=== PATIENT | female | born 1955 | race Caucasian/White ===

== ENCOUNTER 2019-08-22 22:34 | Emergency (ER) | payer BC, SELFPAY ==
[2019-08-22 22:37] VITALS: BP 166/90; PULSE 87; RESP 19; TEMP 36.2; O2SAT 98
[2019-08-22 23:29] VITALS: BP 148/75; PULSE 80; RESP 18; O2SAT 97
--- NOTE | 2019-08-23 00:03 | ED.GENADULT ---
HPI - General Adult General Chief complaint: Extremity Injury, Lower Stated complaint: r leg pain Time Seen by Provider: 08/22/19 23:06 Source: patient and family Mode of arrival: ambulatory Limitations: no limitations History of Present Illness HPI narrative: Patient is a 64-year-old female who presents for evaluation of bruised area to the right inner thigh patient denies injury or trauma or similar occurrence in the past patient on arrival is in no distress patient notes some stinging intermittent pain worse with activity and movement patient notes that the pain does not radiate denies any other complaints presents per private vehicle in no distress Related Data Allergies Allergy/AdvReac Type Severity Reaction Status Date / Time nabumetone Allergy Unknown Unknown Verified 08/22/19 23:37 pregabalin Allergy Unknown Unconscious Verified 08/22/19 23:37 Review of Systems Review of Systems: All systems reviewed & are unremarkable except as noted in HPI and below PMFSH Past Medical History Medical History (Updated 08/23/19 @ 00:08 by Jam Brown PA-C) Fibromyalgia Social History Social History Smoking status: Never smoker Alcohol intake: never Gender identity (if verbalized by the patient): Female Exam Narrative: Exam Narrative: GENERAL: Well-appearing, well-nourished, and in no acute distress. HEAD: Normocephalic, atraumatic. EYES: PERRLA and EOMI. ENT: Nares clear, no rhinorrhea or epistaxis. Mucous membranes moist. CHEST: Clear to auscultation. No respiratory distress. No wheezes rales or rhonchi HEART: Regular rate and rhythm. No murmur heard. Normal peripheral pulses. EXTREMITIES: Normal range of motion. No edema. SKIN: Warm, dry, no rash. Patient with bruised area with extravasation in the right inner thigh remainder of extremity is nontender without any deformity NEURO: No focal deficits. Alert and oriented x3. Neurovascularly intact. Capillary refill less than 2 seconds PSYCH: Normal mood and affect. Course Course Emergency Course: Patient in the room in no distress with findings consistent with likely muscle tear or superficial bleeding and bruising no other findings can concerning at this time advised to follow with primary care and given reasons to return Vital Signs Vital signs: Vital Signs Temperature 97.2 F L 08/22/19 22:37 Pulse Rate 87 08/22/19 22:37 Respiratory Rate 19 08/22/19 22:37 Blood Pressure 166/90 H 08/22/19 22:37 Pulse Oximetry 98 08/22/19 22:37 Temperature 97.2 F L 08/22/19 22:37 Pulse Rate 80 08/22/19 23:29 Respiratory Rate 18 08/22/19 23:29 Blood Pressure 148/75 H 08/22/19 23:29 Pulse Oximetry 97 08/22/19 23:29 Medical Decision Making MDM Narrative Medical decision making narrative: Patients injury or pain is consistent with musculoskeletal etiology. No signs of neurological or vascular compromise on exam. Compartments and tisues are soft without signs of compartment syndrome. Pain is felt appropriate for further evaluation on an outpatient basis. Vital Signs Vital Signs: Vital Signs Temperature 97.2 F L 08/22/19 22:37 Pulse Rate 87 08/22/19 22:37 Respiratory Rate 19 08/22/19 22:37 Blood Pressure 166/90 H 08/22/19 22:37 Pulse Oximetry 98 08/22/19 22:37 Temperature 97.2 F L 08/22/19 22:37 Pulse Rate 80 08/22/19 23:29 Respiratory Rate 18 08/22/19 23:29 Blood Pressure 148/75 H 08/22/19 23:29 Pulse Oximetry 97 08/22/19 23:29 Discharge Plan Discharge Clinical Impression: Acute pain of right thigh Patient Disposition: Home, Self-Care Condition: Stable Instructions: Antibiotic Form, Leg Pain (ED) Additional Instructions: Limited weight on the affected leg until able to bear weight without pain. Ice and elevate extremity. Pain medication as needed and directed. Follow up with your doctor for further care in the next 2 days to set up
[2019-08-23 00:55] VITALS: BP 138/80; PULSE 7; RESP 16; O2SAT 97
== END 2019-08-23 00:58 | disposition home or self-care (01) ==
PROVIDERS: Emergency Provider Emergency Medicine
DX: M79.651 Pain in right thigh (principal); M79.7 Fibromyalgia
CPT/HCPCS: 99282

== ENCOUNTER 2022-11-21 17:26 | Emergency (ER) | payer OTHER, SELFPAY ==
[2022-11-21] VITALS (8 sets, daily range): BP systolic 116–140; BP diastolic 63–75; PULSE 80–102; RESP 11–18; TEMP 36.5; O2SAT 99
--- NOTE | ~2022-11-21 | CT_ITS ---
EXAMINATION: CT abdomen pelvis w con DATE: 11/21/2022 20:25 INDICATION: Diverticulitis with gastrointestinal bleed TECHNIQUE: Computed tomography (CT) of the abdomen and pelvis was performed with 100 mL Omnipaque-350 intravenous contrast. Automated exposure control and iterative reconstruction technique were employe d. The dose-length product was 1036.65 mGy-cm. COMPARISON: 09/30/2018 FINDINGS: Mild paravertebral atelectasis/scarring at the azygos esophageal recess of the right lower lobe relat ed to prominent endplate osteophytes at the lower thoracic spine consistent with diffuse idiopathic s keletal hyperostosis (DISH). Heart size is normal. No pericardial or pleural effusion. Small sliding- type hiatal hernia with postoperative change of prior Minerva-en-Y gastric bypass procedure. Chronic mil d intrahepatic biliary ductal dilation is within normal limits post cholecystectomy with surgical cli ps at the gallbladder fossa. There are a few additional surgical clips along the anterior margin of t he spleen. Pancreas, spleen and bilateral adrenal glands are normal. 1.5 cm right renal cyst. Small r egion of cortical scarring at both kidneys likely sequela of prior infarction or infection. Consider change of prior cecal resection with right lower quadrant ileocolic anastomosis. No bowel obstruction . There are few scattered colonic diverticula primarily along the sigmoid colon without adjacent infl ammatory change to suggest diverticulitis. Bladder is normal. The uterus is not identified and has quin sanches been surgically resected. Unchanged infraumbilical ventral diastases underlying a midline surgic al scar. No free intraperitoneal gas or fluid. No pathologically enlarged abdominal or pelvic lymphad enopathy. Moderate lumbar and lower thoracic spondylosis. IMPRESSION: 1. Mild diverticulosis without evident diverticulitis or other acute intra-abdominal/pelvic process. 2. Small sliding-type hiatal hernia with postoperative change of prior gastric bypass procedure. 3. Additional postoperative change of prior cholecystectomy, hysterectomy and cecal resection. Reviewed, dictated and finalized at location A. IMPRESSION: 1. Mild diverticulosis without evident diverticulitis or other acute intra-abdo lisa/pelvic process. 2. Small sliding-type hiatal hernia with postoperative change of prior gastric bypass procedure. 3. Additional postoperative change of prior cholecystectomy, hysterectomy and c ecal resection.
[2022-11-21 17:48] LABS: Basophils Absolute Auto 0.1 K/mm3 (0.0-0.1); Basophils Percent Auto 0.7 % (0.2-1.2); Eosinophils Absolute Auto 0.2 K/mm3 (0-0.3); Eosinophils Percent Auto 1.2 % (0-4.4); Hematocrit 32.2 % (37.0-47.0); Hemoglobin 10.4 g/dL (12.0-15.0); Immature Granulocyte Absolute 0.07 K/mm3 (0.00-0.031); Immature Granulocyte Percent A 0.6 % (0-0.5); Lymphocytes Absolute Auto 3.69 K/mm3 (0.9-3.2); Mean Corpuscular HGB Conc 32.3 g/dl (32-36); Mean Corpuscular Hemoglobin 31.4 pg (26-34); Mean Corpuscular Volume 97.3 fl (80-100); Mean Platelet Volume 10.5 fl (7.4-10.4); Monocytes Absolute Auto 1.1 K/mm3 (0.1-0.6); Monocytes Percent Auto 8.7 % (2.6-8.5); Neutrophils Absolute Auto 7.2 K/mm3 (1.3-6.7); Neutrophils Percent Auto 58.8 % (45.5-73.1); Platelet Count Result 287 k/mm3 (150-375); Red Blood Count 3.31 M/mm3 (4.2-5.4); Red Cell Distribution Width 14.4 % (11.5-14.5); White Blood Count 12.3 K/mm3 (4.5-10.0)
[2022-11-21 18:00] LABS: Alanine Aminotransferase 33 U/L (6-35); Albumin Level 4.7 g/dL (3.5-5.1); Alkaline Phosphatase 66 U/L (38-126); Anion Gap 13 mmol/L (8-16); Aspartate Amino Transferase 36 U/L (14-36); Bilirubin,Total 0.5 mg/dL (0.2-1.3); Blood Urea Nitrogen 37 mg/dL (7-17); Calcium 9.2 mg/dL (8.4-10.2); Carbon Dioxide 23 mmol/L (22-30); Chloride 100 mmol/L (98-107); Estimated CRCL calculation 55 ml/min; Estimated Glomerular Filt Rate > 60; Glucose 127 mg/dL (65-110); Potassium 3.4 mmol/L (3.4-5.0); Sodium 136 mmol/L (137-145)
[2022-11-21 18:01] LABS: Partial Thromboplastin Time 25.1 SECONDS (22.3-36.8); Prothrombin Time 13.7 Seconds (11.1-14.7)
[2022-11-21] MEDS: ONDANSETRON INJ 4 MG/2 ML VIAL IV PUSH (20:36)
[2022-11-21] MEDS: PANTOPRAZOLE SODIUM IV 40 MG VIAL 80 MG IV PUSH (20:37)
[2022-11-21] MEDS: HYDROmorphone HCL INJ (*CRX) 1 MG/ML SYR 0.5 MG IV PUSH ×2 (20:37→23:11)
[2022-11-21] MEDS: SODIUM CHLORIDE 0.9% IV 2,000 ML 999 ML IV CONT (20:37)
[2022-11-21 21:26] LABS: Troponin I < 0.012 ng/mL (0.000-0.034)
[2022-11-21 21:29] LABS: Hemoglobin 9.7 g/dL (12.0-15.0)
--- NOTE | 2022-11-21 21:49 | ED.GENADULT ---
HPI - General Adult General Chief complaint: GI Bleed Stated complaint: rectal bleeding Time Seen by Provider: 11/21/22 19:40 History of Present Illness HPI narrative: this is a 67-year-old female presenting ED with a chief complaint of GI bleed. The patient says she has been having reddish black stools for the last 2 days. Associated with weakness and fatigue. She has also had some crampy/sharp lower abdominal pain that has been occurring intermittently for the last several months but is worse over the last 2 days. She did have a colonoscopy 2 years ago and has a history of diverticulosis. Patient is not on blood thinners. Related Data Allergies Allergy/AdvReac Type Severity Reaction Status Date / Time nabumetone Allergy Unknown Unknown Verified 08/22/19 23:37 pregabalin Allergy Unknown Unconscious Verified 08/22/19 23:37 REPLACED BY [facility] Past Medical History Medical History Fibromyalgia Social History Social History Smoking status: Never smoker Alcohol intake: never Gender identity (if verbalized by the patient): Female Exam Narrative: APPEARANCE: No apparent distress. Head: atraumatic. EYES: EOMI, NOSE: Atraumatic NECK: Trachea midline RESPIRATORY: No increased rate of breathing CARDIOVASCULAR: RRR, ABDOMINAL: soft nontender no guarding or rebound, digital rectal exam revealed reddish brown stool in the rectal vault which was Hemoccult positive. MUSCULOSKELETAl: No obvious deformities NEURO: Alert. Moving 4/4 extremities SKIN:: Warm, dry. Normal color PSYCHIATRIC: Normal affect Course Vital Signs Vital signs: Vital Signs Temperature 97.7 F 11/21/22 17:26 Pulse Rate 102 H 11/21/22 17:26 Respiratory Rate 18 11/21/22 17:26 Blood Pressure 140/75 11/21/22 17:26 Pulse Oximetry 99 11/21/22 17:26 Temperature 97.7 F 11/21/22 17:26 Pulse Rate 87 11/21/22 21:01 Respiratory Rate 15 11/21/22 21:01 Blood Pressure 135/63 11/21/22 21:01 Pulse Oximetry 99 11/21/22 20:48 Medical Decision Making [facility] Narrative Medical decision making narrative: -Presentation: 67-year-old female presenting with blood per rectum. Patient has had a bowel movement here with passage of large clots. 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 Pate - GI, Dr. Zapata - Hospitalist -Independent interpretation of studies: Hemoglobin initially was 10.4. repeat several hours later dropped to 9.7. baseline hemoglobin is typically 11. Metabolic panel showed an elevation in BUN which is consistent with GI bleed troponin undetectable. CT abdomen pelvis interpreted: 1. Mild diverticulosis without evident diverticulitis or other acute intra-abdominal/pelvic process. 2. Small sliding-type hiatal hernia with postoperative change of prior gastric bypass procedure. 3. Additional postoperative change of prior cholecystectomy, hysterectomy and cecal resection. Dx tests considered but not ordered:None -Procedures: none -Interventions: 2 L normal saline, 80 mg protonix -Shared decision making / Disposition: patient will be transferred to [facility] in [place] for GI. -RX Vital Signs Vital Signs: Vital Signs Temperature 97.7 F 11/21/22 17:26 Pulse Rate 102 H 11/21/22 17:26 Respiratory Rate 18 11/21/22 17:26 Blood Pressure 140/75 11/21/22 17:26 Pulse Oximetry 99 11/21/22 17:26 Temperature 97.7 F 11/21/22 17:26 Pulse Rate 87 11/21/22 21:01 Respiratory Rate 15 11/21/22 21:01 Blood Pressure 135/63 11/21/22 21:0
[2022-11-22 00:24] LABS: Troponin I < 0.012 ng/mL (0.000-0.034)
--- NOTE | 2022-11-22 01:43 | PC.NURSE ---
Gave report to nurse accepting patient [facility] ( ) Bed 352-1
[2022-11-22] MEDS: HYDROmorphone HCL INJ (*CRX) 1 MG/ML SYR 0.5 MG IV PUSH (02:28)
[2022-11-22 02:30] VITALS: BP 134/68; PULSE 71; RESP 16; O2SAT 99
== END 2022-11-22 05:11 | disposition short-term general hospital (02) ==
PROVIDERS: Emergency Medicine; Emergency Provider Emergency Medicine; PCP Internal Medicine
DX: K92.2 Gastrointestinal hemorrhage, unspecified (principal); M79.7 Fibromyalgia; K57.30 Diverticulosis of large intestine without perforation or abscess without bleeding; K44.9 Diaphragmatic hernia without obstruction or gangrene; Z98.84 Bariatric surgery status; Z90.49 Acquired absence of other specified parts of digestive tract; Z90.710 Acquired absence of both cervix and uterus
CPT/HCPCS: 36415; 74177; 80053; 84484; 85014; 85018; 85025; 85610; 85730; 86850; 86900; 86901; 96361; 96365; 96375; 96376; 99285; C9113; J0131; J1170; J2405; J7030; Q9967

== ENCOUNTER 2023-03-22 17:28 | Emergency (ER) | payer OTHER, SELFPAY ==
--- NOTE | ~2023-03-22 | CT_ITS ---
EXAMINATION: CT cervical spine wo con DATE: 03/22/2023 19:53 INDICATION: Head injury TECHNIQUE: Computed tomography (CT) of the cervical spine was performed without intravenous contrast. The dose-length product (DLP) was 278.08 mGy-cm. Automated exposure control and iterative reconstruc tion technique were employed. COMPARISON: None FINDINGS: There are 3 mm of retrolisthesis of C3 on C4. There is no fracture. The odontoid process is intact. There is severe loss of intervertebral disc space height from C3-4 through C6-7. There is mu ltilevel severe facet and uncovertebral joint osteoarthritis. The prevertebral soft tissues are magdiel l. IMPRESSION: 1. Severe cervical spondylosis without acute findings. Reviewed, dictated and finalized at location F.
--- NOTE | ~2023-03-22 | CT_ITS ---
EXAMINATION: CT brain wo con INDICATION: Headache COMPARISON: 09/30/2018 TECHNIQUE: Standard unenhanced head CT. The dose-length product (DLP) was 605.33 mGy-cm. The mA was a djusted according to patient size. Iterative reconstruction technique was employed. FINDINGS: No acute intraparenchymal hemorrhage. No evidence of mass lesion. No evidence of acute infa rction. There is mild periventricular and subcortical hypodensity probably related to small vessel is chemic disease. There is mild prominence of the sulci and ventricles related to cerebral atrophy. Int racranial calcified cerebral atherosclerosis is noted. No extra-axial collections. No mass effect or midline shift. Changes in the globes are likely from ocular lens surgery. The visualized sinuses and mastoid air cells are well aerated. IMPRESSION: 1. No acute intracranial abnormality. 2. Age related findings. Reviewed, dictated and finalized at location F.
[2023-03-22 17:30] VITALS: BP 139/110; PULSE 110; RESP 16; TEMP 36.7; O2SAT 99
[2023-03-22 17:45] VITALS: BP 167/92; PULSE 109; RESP 14; O2SAT 95
--- NOTE | 2023-03-22 17:45 | ECG_ITS ---
Measurements Intervals [place] Rate: 107 P: 16 [place]: 153 QRS: -19 QRSD: 88 T: 61 QT: 324 QTc: 434 Interpretive Statements SINUS TACHYCARDIA POSSIBLE LEFT ATRIAL ENLARGEMENT INCOMPLETE RIGHT BUNDLE BRANCH BLOCK LOW QRS VOLTAGE IN PRECORDIAL LEADS POOR R WAVE PROGRESSION, ANTERIOR LEADS BORDERLINE ST-T WAVE ABNORMALITY- HIGH LATERAL LEADS BASELINE WANDER- V3-V5 ABNORMAL ECG COMPARED TO ECG 09/30/2018 19:11:49 SINUS TACHYCARDIA NOW PRESENT Electronically Signed On 03-22-2023 19:44:25 CDT by Andrea Gallegos D.O.
[2023-03-22 18:10] VITALS: BP 152/99; PULSE 104
[2023-03-22 18:13] VITALS: BP 148/103; PULSE 105
[2023-03-22 18:14] VITALS: BP 174/109; PULSE 110
[2023-03-22 18:14] LABS: Appearance Urine Clear (Clear); Bacteria Urine None Seen /hpf; Bilirubin Urine Negative (Negative); Blood Urine 2+ (Negative); Color Urine Yellow (Yellow); Glucose Urine UA Negative (Negative); Ketones Urine Negative (Negative); Leukocyte Esterase Ur Negative LEU/UL (Negative); Nitrate Urine Negative (Negative); Non Pathogenic Casts 0-2; Protein Urine 1+ mg/dL (Negative); Specific Grav Ur 1.019 (1.001-1.035); Squamous Epithelial Cell Urine Few /hpf (Few); Urobilinogen Urine 0.2 mg/dL (<2.0); WBC Urine 0-5 /hpf; pH Urine 5.5 (5.0-9.0)
[2023-03-22 18:18] LABS: Add Urine Microscopic? YES
[2023-03-22 18:30] LABS: Basophils Absolute Auto 0.1 K/mm3 (0.0-0.1); Basophils Percent Auto 0.8 % (0.2-1.2); Eosinophils Absolute Auto 0.1 K/mm3 (0-0.3); Eosinophils Percent Auto 1.1 % (0-4.4); Hematocrit 43.6 % (37.0-47.0); Hemoglobin 13.7 g/dL (12.0-15.0); Immature Granulocyte Absolute 0.06 K/mm3 (0.00-0.031); Immature Granulocyte Percent A 0.5 % (0-0.5); Lymphocytes Absolute Auto 2.62 K/mm3 (0.9-3.2); Lymphocytes Percent Auto 23.7 % (18.3-44.2); Mean Corpuscular HGB Conc 31.4 g/dl (32-36); Mean Corpuscular Hemoglobin 27.5 pg (26-34); Mean Corpuscular Volume 87.4 fl (80-100); Mean Platelet Volume 9.9 fl (7.4-10.4); Monocytes Absolute Auto 1.1 K/mm3 (0.1-0.6); Monocytes Percent Auto 9.9 % (2.6-8.5); Neutrophils Absolute Auto 7.1 K/mm3 (1.3-6.7); Platelet Count Result 353 k/mm3 (150-375); Red Blood Count 4.99 M/mm3 (4.2-5.4); Red Cell Distribution Width 20.3 % (11.5-14.5); White Blood Count 11.1 K/mm3 (4.5-10.0)
[2023-03-22 18:40] LABS: Alanine Aminotransferase 37 U/L (6-35); Alkaline Phosphatase 95 U/L (38-126); Anion Gap 13 mmol/L (8-16); Aspartate Amino Transferase 39 U/L (14-36); Bilirubin,Total 0.7 mg/dL (0.2-1.3); Blood Urea Nitrogen 10 mg/dL (7-17); Calcium 10.4 mg/dL (8.4-10.2); Carbon Dioxide 25 mmol/L (22-30); Chloride 105 mmol/L (98-107); Estimated CRCL calculation 68 ml/min; Estimated Glomerular Filt Rate > 60; Glucose 95 mg/dL (65-110); Potassium 3.6 mmol/L (3.4-5.0); Sodium 143 mmol/L (137-145)
--- NOTE | 2023-03-22 19:28 | ED.HEATRA ---
HPI - Head Injury General Chief complaint: Head Injury Stated complaint: fall, L side head pain Time Seen by Provider: 03/22/23 18:39 History of Present Illness HPI Narrative: Patient is a 68-year-old female presenting after a fall. Patient states that she was working in her Garden 2 days ago when she thinks that she tripped and she fell back striking her head. States that she sat there for a second to catch her breath and then she went back to gardening. States that she has had a left-sided headache since that time as well as a general feeling of being off. States that she is concerned that her blood pressure has been high in the 160s systolic. States that she has felt nauseated with no vomiting. Complains of chronic neck and shoulder pain that might be a little worse after the fall. No numbness or weakness, chest pain, shortness of breath, cough, palpitations, abdominal pain, leg swelling, dysuria. Related Data Home Medications Medication Instructions Recorded Confirmed acetaminophen 300 mg-codeine 30 mg tablet 03/22/23 tablet amlodipine 2.5 mg tablet mg 03/22/23 cyanocobalamin (vitamin B-12) mcg 03/22/23 1,000 mcg/mL injection solution duloxetine 60 mg capsule,delayed mg PO 03/22/23 release furosemide 40 mg tablet mg 03/22/23 hydrochlorothiazide 25 mg tablet mg 03/22/23 levothyroxine 112 mcg tablet mcg 03/22/23 oxybutynin chloride 10 mg mg PO 03/22/23 03/22/23 tablet,extended release 24 hr oxybutynin chloride 5 mg tablet mg 03/22/23 polysaccharide iron complex 150 mg mg 03/22/23 iron capsule spironolactone 25 mg tablet mg 03/22/23 Allergies Allergy/AdvReac Type Severity Reaction Status Date / Time nabumetone Allergy Unknown Unknown Verified 08/22/19 23:37 pregabalin Allergy Unknown Unconscious Verified 08/22/19 23:37 Review of Systems Review of Systems: All systems reviewed & are unremarkable except as noted in HPI and below PMFSH Past Medical History Medical History Fibromyalgia Social History Social History Smoking status: Never smoker Alcohol intake: never Gender identity (if verbalized by the patient): Female Exam Narrative: GENERAL: Well-appearing, in no acute distress HEAD: Normocephalic, atraumatic. EYES: PERRLA and EOMI. ENT: Nares clear, no rhinorrhea or epistaxis. Mucous membranes moist. NECK: Supple. Bilateral paraspinal tenderness of cervical region, no midline tenderness CHEST: Clear to auscultation. No respiratory distress. HEART: Regular rate and rhythm ABDOMEN: Soft, nontender, nondistended EXTREMITIES: Normal range of motion. No edema. SKIN: Warm, dry, no rash. NEURO: No focal deficits. Alert and oriented x3. PSYCH: Normal mood and affect. Course Vital Signs Vital signs: Vital Signs Temperature 98.0 F 03/22/23 17:30 Pulse Rate 110 H 03/22/23 17:30 Respiratory Rate 16 03/22/23 17:30 Blood Pressure 139/110 H 03/22/23 17:30 Pulse Oximetry 99 03/22/23 17:30 Oxygen Delivery Room Air 03/22/23 17:30 Temperature 98.0 F 03/22/23 17:30 Pulse Rate 90 03/22/23 21:48 Respiratory Rate 16 03/22/23 21:48 Blood Pressure 152/87 H 03/22/23 21:48 Pulse Oximetry 97 03/22/23 21:48 Oxygen Delivery Room Air 03/22/23 17:30 MDM - Head Injury MDM Narrative Medical decision making narrative: Patient is a 68-year-old female presenting with a headache for several days after falling and striking her head. Vitals are stable. Exam remarkable for the above. Blood work is unremarkable. UA not indicative of infection. CT brain and C-spine negative for acute injuries. On reevaluation, the patient reports resolution of her nausea. States that her headache is improved though she continues to have neck and shoulder pain that she states is chronic. Discussed the reassuring work-up. Feel she is safe for outpatient ma
[2023-03-22] MEDS: ONDANSETRON INJ 4 MG/2 ML VIAL IV PUSH (19:54)
[2023-03-22] MEDS: ACETAMINOPHEN 500 MG TABLET 1000 MG PO (19:54)
[2023-03-22] MEDS: SODIUM CHLORIDE 0.9% IV 1,000 ML 999 ML IV CONT (19:55)
[2023-03-22] MEDS: KETOROLAC 30 MG/ML VIAL (*BKC) IV PUSH (20:41)
[2023-03-22 21:48] VITALS: BP 152/87; PULSE 90; RESP 16; O2SAT 97
== END 2023-03-22 21:49 | disposition home or self-care (01) ==
PROVIDERS: Emergency Medicine; Emergency Provider Emergency Medicine
DX: S06.0X0A Concussion without loss of consciousness, initial encounter (principal); M79.7 Fibromyalgia; M47.812 Spondylosis without myelopathy or radiculopathy, cervical region; W01.0XXA Fall on same level from slipping, tripping and stumbling without subsequent striking against object, initial encounter; Y93.H2 Activity, gardening and landscaping
CPT/HCPCS: 36415; 70450; 72125; 80053; 81001; 85025; 93005; 96361; 96374; 96375; 99284; A9270; J1885; J2405; J7030

== ENCOUNTER 2023-08-14 17:10 | Emergency (ER) | payer OTHER, SELFPAY ==
--- NOTE | ~2023-08-14 | XR_ITS ---
EXAM: XR wrist RT 2V, XR forearm RT 2V DATE: 08/14/2023 17:50 HISTORY: fall . COMPARISON: None available. FINDINGS: Decreased mineralization. Comminuted fracture of the distal right ulnar metaphysis, with m inimal, 2 mm lateral displacement, and minimal anterior angulation. The DRUJ appears to remain intact . No lytic or blastic lesion. Moderate polyarticular osteoarthritic changes. No erosion or periosteal change. Soft tissues swelling at the fracture site. IMPRESSION: Comminuted, minimally displaced and angulated distal right ulnar fracture. Reviewed, dictated and finalized at location K. [employer] IMPRESSION: Comminuted, minimally displaced and angulated distal right ulnar fr acture.
[2023-08-14 17:32] VITALS: BP 148/77; PULSE 83; RESP 16; TEMP 37; O2SAT 98
[2023-08-14] MEDS: HYDROcodone/acetaminophen (*CRX) 5-325 MG TABLET 1 TAB PO (19:34)
--- NOTE | 2023-08-14 20:39 | ED.UPPEXIN ---
HPI - Extremity Injury (Upper) General Chief Complaint: Extremity Injury, Upper Stated Complaint: R WRIST PAIN S/P FALL Time Seen by Provider: 08/14/23 19:31 History of Present Illness HPI narrative: 68-year-old female reports for evaluation for mechanical fall that occurred prior to arrival. Patient states she was walking in her driveway, tripped on a step and fell, injuring her right forearm. She is reporting pain to her distal right forearm and right wrist. She denies hitting her head or losing consciousness. Denies other injuries acquired. Pt is wearing a sling to her L arm for a recent shoulder replacement at [place]. Tetanus is up-to-date. Related Data Home Medications Medication Instructions Recorded Confirmed acetaminophen 300 mg-codeine 30 mg tablet 03/22/23 tablet amlodipine 2.5 mg tablet mg 03/22/23 cyanocobalamin (vitamin B-12) mcg 03/22/23 1,000 mcg/mL injection solution duloxetine 60 mg capsule,delayed mg PO 03/22/23 release furosemide 40 mg tablet mg 03/22/23 hydrochlorothiazide 25 mg tablet mg 03/22/23 levothyroxine 112 mcg tablet mcg 03/22/23 oxybutynin chloride 10 mg mg PO 03/22/23 03/22/23 tablet,extended release 24 hr oxybutynin chloride 5 mg tablet mg 03/22/23 polysaccharide iron complex 150 mg mg 03/22/23 iron capsule spironolactone 25 mg tablet mg 03/22/23 Allergies Allergy/AdvReac Type Severity Reaction Status Date / Time nabumetone Allergy Unknown Unknown Verified 08/22/19 23:37 pregabalin Allergy Unknown Unconscious Verified 08/22/19 23:37 Review of Systems Review of Systems: CONSTITUTIONAL: Denies fever, chills, or sweats. EYES: Denies visual changes, redness, or discharge. ENT: Denies rhinorrhea, congestion, sore throat, or otalgia. CARDIOVASCULAR: Denies chest pain, palpitations, or edema. RESPIRATORY: Denies cough or dyspnea. GASTROINTESTINAL: Denies abdominal pain, nausea, vomiting, or diarrhea. GENITOURINARY: Denies dysuria or hematuria. SKIN: Denies rash or itching. MUSCULOSKELETAL: See HPI NEUROLOGIC: Denies headache, numbness, or weakness. PSYCHIATRIC: Denies anxiety or depression. [facility] Past Medical History Medical History Fibromyalgia Social History Social History Smoking status: Never smoker Alcohol intake: never Gender identity (if verbalized by the patient): Female Exam Narrative: GENERAL: Well-appearing, well-nourished, and in no acute distress. HEAD: Normocephalic, atraumatic. EYES: PERRLA and EOMI. ENT: Nares clear, no rhinorrhea or epistaxis. Mucous membranes moist. NECK: Midline cervical spinous tenderness, step-offs or deformities. BACK: No midline thoracolumbar spinous tenderness, step-offs or deformities. CHEST: Clear to auscultation. No respiratory distress. HEART: Regular rate and rhythm. No murmur heard. Normal peripheral pulses. ABDOMEN: Soft, nontender, nondistended, normal active bowel sounds. EXTREMITIES: Left arm in a sling. No tenderness to left upper extremity. No tenderness to right shoulder, right humerus, right elbow. There is tenderness to the distal right forearm and wrist, no tenderness to hand or fingers. There is a 4 x 2 abrasion to the dorsum of the distal right wrist, bleeding controlled. Abrasion inspected, there is no deep puncture wounds or foreign bodies. Compartments soft. No tenderness to the snuffbox. Radial pulses 2+ intact bilaterally. Radial, median and ulnar nerves intact. Sensation intact throughout. No tenderness to bilateral hips or lower extremities. SKIN: Warm, dry, no rash. NEURO: No focal deficits. Alert and oriented x3 Course Vital Signs Vital signs: Vital Signs Temperature 98.6 F 08/14/23 17:32 Pulse Rate 83 08/14/23 17:32 Respiratory Rate 16 08/14/23 17:32 Blood Pressure 148/77 H 08/14/23 17:32 Pulse Oximetry 98 08/14/23 17:32
[2023-08-14] MEDS: CEPHALEXIN 500 MG CAPSULE PO (21:43)
[2023-08-14] MEDS: HYDROmorphone HCL INJ (*CRX) 1 MG/ML SYR IM (21:44)
[2023-08-14 22:00] VITALS: PULSE 71; RESP 20; O2SAT 96
== END 2023-08-14 22:08 | disposition home or self-care (01) ==
PROVIDERS: Emergency Provider Physician Assistant
DX: S59.091A Other physeal fracture of lower end of ulna, right arm, initial encounter for closed fracture (principal); M79.7 Fibromyalgia; W10.9XXA Fall (on) (from) unspecified stairs and steps, initial encounter
CPT/HCPCS: 29125; 73090; 73100; 96372; 99284; A4565; A9270; J1170

== ENCOUNTER 2025-07-06 16:40 | Emergency (ER) | payer OTHER, SELFPAY ==
--- OUTSIDE RECORDS SUMMARY | 2025-02-19 04:00 | XMS_ITS | Continuity of Care Document ---
Author Organization [facility] Address [address] [place] [address] [address] [place] [address] Phone Care Team Providers Care Corrosion Engineer Name Role Phone Poonam Samano OT Unavailable Unavailable Procedures Procedure Date Therapeutic Activities Orthotic Mgmt and Training HO w/o joints CF Therapeutic Activities Neuromuscular Re-Ed Therapeutic Exercise Hot or Cold Pack Orthotic Mgmt and Training HFO w/o joints CF Therapeutic Activities Therapeutic Exercise Hot or Cold Pack Therapeutic Activities Neuromuscular Re-Ed Hot or Cold Pack Therapeutic Activities Neuromuscular Re-Ed Therapeutic Exercise Hot or Cold Pack Electrical Stimulation Therapeutic Activities Neuromuscular Re-Ed Therapeutic Exercise Hot or Cold Pack Electrical Stimulation Therapeutic Activities Neuromuscular Re-Ed Therapeutic Exercise Hot or Cold Pack Electrical Stimulation Doc neg elder mal no plan PRES/ABSN URINE INCON ASSESS Identified as not an unhealthy alcohol u ser Not identified as unhealthy alcohol via screening OT Re-Evaluation Therapeutic Activities Neuromuscular Re-Ed Therapeutic Exercise Hot or Cold Pack Electrical Stimulation Therapeutic Activities Neuromuscular Re-Ed Therapeutic Exercise Hot or Cold Pack Doc neg elder mal no plan PRES/ABSN URINE INCON ASSESS Identified as not an unhealthy alcohol u ser Not identified as unhealthy alcohol via screening OT Evaluation Low Complexity Therapeutic Activities Hot or Cold Pack Therapeutic Exercise Orthotic Mgmt and Training [facility] Comfort Cool Rainer Thumb Splint [facility] [employer] Cool [place]ainer Thumb Splint Progress Note THERAPEUTIC EXERCISES NEUROMUSCULAR RE-ED MANUAL THERAPY FUNC ACTIVITY HOT/COLD PACK ELECTRIC STIMULATION UNA THERAPEUTIC EXERCISES NEUROMUSCULAR RE-ED MANUAL THERAPY FUNC ACTIVITY THERAPEUTIC EXERCISES NEUROMUSCULAR RE-ED MANUAL THERAPY FUNC ACTIVITY HOT/COLD PACK ELECTRIC STIMULATION UNATT THERAPEUTIC EXERCISES NEUROMUSCULAR RE-ED MANUAL THERAPY FUNC ACTIVITY HOT/COLD PACK ELECTRIC STIMULATION UNATT THERAPEUTIC EXERCISES MANUAL THERAPY HOT/COLD PACK ELECTRIC STIMULATION UNATT THERAPEUTIC EXERCISES NEUROMUSCULAR RE-ED MANUAL THERAPY FUNC ACTIVITY HOT/COLD PACK THERAPEUTIC EXERCISES NEUROMUSCULAR RE-ED MANUAL THERAPY FUNC ACTIVITY HOT/COLD PACK ELECTRIC STIMULATION UNATT THERAPEUTIC EXERCISES NEUROMUSCULAR RE-ED MANUAL THERAPY FUNC ACTIVITY HOT/COLD PACK ELECTRIC STIMULATION UNATT THERAPEUTIC EXERCISES NEUROMUSCULAR RE-ED MANUAL THERAPY FUNC ACTIVITY HOT/COLD PACK ELECTRIC STIMULATION UNATT THERAPEUTIC EXERCISES NEUROMUSCULAR RE-ED MANUAL THERAPY FUNC ACTIVITY HOT/COLD PACK ELECTRIC STIMULATION UNATT THERAPEUTIC EXERCISES NEUROMUSCULAR RE-ED MANUAL THERAPY FUNC ACTIVITY HOT/COLD PACK ELECTRIC STIMULATION UNATT Progress Note THERAPEUTIC EXERCISES NEUROMUSCULAR RE-ED MANUAL THERAPY FUNC ACTIVITY HOT/COLD PACK THERAPEUTIC EXERCISES NEUROMUSCULAR RE-ED MANUAL THERAPY FUNC ACTIVITY HOT/COLD PACK ELECTRIC STIMULATION UNATT THERAPEUTIC EXERCISES NEUROMUSCULAR RE-ED MANUAL THERAPY HOT/COLD PACK ELECTRIC STIMULATION UNATT THERAPEUTIC EXERCISES MANUAL THERAPY HOT/COLD PACK ELECTRIC STIMULATION UNATT THERAPEUTIC EXERCISES NEUROMUSCULAR RE-ED MANUAL THERAPY FUNC ACTIVITY HOT/COLD PACK ELECTRIC STIMULATION UNATT THERAPEUTIC EXERCISES NEUROMUSCULAR RE-ED MANUAL THERAPY FUNC ACTIVITY THERAPEUTIC EXERCISES NEUROMUSCULAR RE-ED MANUAL THERAPY FUNC ACTIVITY HOT/COLD PACK ELECTRIC STIMULATION UNATT THERAPEUTIC EXERCISES NEUROMUSCULAR RE-ED MANUAL THERAPY HOT/COLD PACK ELECTRIC STIMULATION UNATT [employer] THERAPEUTIC EXERCISES NEUROMUSCULAR RE-ED MANUAL THERAPY HOT/COLD PACK ELECTRIC STIMULATION UNATT THERAPEUTIC EXERCISES NEUROMUSCULAR RE-ED MANUAL THERAPY HOT/COLD PACK ELECTRIC STIMULATION UNATT THERAPEUTIC EXERCISES NEUROMUSCULAR RE-ED MANUAL THERAPY HOT/COLD PACK ELECTRIC STIMULATION UNATT THERAPEUTIC EXERCISES NEUROMUSCULAR RE-ED MANUAL THERAPY HOT/COLD PACK ELECTRIC STIMULATION UNATT THERAPEUTIC EXERCISES MANUAL THERAPY HOT/COLD PACK ELECTRIC STIMULATION UNATT THERAPEUTIC EXERCISES MANUAL THERAPY HOT/COLD PACK ELECTRIC STIMULATION UNATT THERAPEUTIC EXERCISES MANUAL THERAPY HOT/COLD PACK ELECTRIC STIMULATION UNATT THERAPEUTIC EXERCISES MANUAL THERAPY HOT/COLD PACK ELECTRIC STIMULATION UNATT PT EVALUATION THERAPEUTIC EXERCISES Advance Directives Directive Yes / No Effective Date File Name No Information Encounters Encounter Description Practice Location Reason(s) For Visit Diagnoses Date Provider Providers Copied on Encounter [facility], [address] [address], [place], [place], [id number], [place] tel:[phone] [facility] No Information 5 Selwyn Levin. . Referring Provider: Joy Gotti, [address], [place], [address]. tel:[phone] [place] [address], [address] [facility], [place], [place], [address], [place] tel:[phone] [place] No Information November-0 4 Tyrel Novakyne. . Referring Provider: Joy Gotti, [address], [place], [address]. tel:[phone] [place] [address], [address] [facility], [place], [place], [address], [place] tel:[phone] [facility] No Information 0 4 Jack Elyssa. . Referring Provider: Joy Gotti, [address], [place], [address]. tel:[phone] [place] [address], [address] [facility], [place], [place], [address], [place] tel:[phone] [place] No Information 4 Tyrel Novakyne. . Referring Provider: Joy Gotti, [address], [place], [address]. tel:[phone] [place] [address] [place], [place] [address], [place], [place], [address], [place] tel:[phone] [place] No Information Oct- 4 Tyrel Novakyne. . Referring Provider: Joy Gotti, [address], [place], [address]. tel:[phone] [place] [address] [address] [facility], [place], [place], [address], [place] tel:[phone] [place] No Information 2- 4 Tyrel Macias. . Referring Provider: Joy Gotti, [address], [place], [address]. tel:[phone] [place] [address] [address], [place], [place], [address], [place] tel:[phone] [place] No Information Apr-0 4 Tyrel Macias. . Referring Provider: Joy Gotti, [address], [place], [address]. tel:[phone] [place] [address], [address], [place], [place], [address], [place] tel:[phone] [place] No Information Apr-0 4 Tyrel Macias. . Referring Provider: Joy Gotti, [address], [place], [address]. tel:[phone] [place] [address], [facility] [address], [place], [place], [address], [place] tel:[phone] [place] No Information Apr-0 4 Tyrel Macias. . Referring Provider: Joy Gotti, [address], [place], [address]. tel:[phone] [place] [address], [address], [place], [place], [address], [place] tel:[phone] [place] No Information Mar-2 4 Tyrel Macias. . Referring Provider: Joy Gotti, [address], [place], [address]. tel:[phone] [place], [place] [address] [address], [place], [place], [address], [place] tel:[phone] [place] No Information Mar-2 4 Tyrel Macias. . Referring Provider: Joy Gotti, [address], [place], [address]. 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 [address] [place] [address], [address], [place], [facility], [place]. tel: [phone] Referring Provider: Kenneth Mandujano, [facility] 6A/6B/12A, [place], [address]. [phone], [place], [place], [address], [place] tel:[phone] [place] No Information 7 Muehl Valentin. [address] [place] [address], [address], [place], [facility], [place]. tel: [phone] [facility] [address] [place], [place] [address], [place], [place], [address], [place] tel:[phone] [place] No Information 7 Muehl Valentin. [address] [place] [address], [address], [place], [address], [place]. tel: [phone] [facility] [address] [facility] [address], [place], [place], [address], tel:[phone] [place] No Information 7 Muehl Valentin. [address] [place] [address], [facility] [address], [place], [address], [place]. tel: [phone] [facility] [address] [facility], [place], [place], [address], [place] tel:[phone] [place] No Information 7 Muehl Valentin. [address] [place] [address], [address], [place], [address], [place]. tel: [phone] [facility] [address] [facility], [place], [place], [address], [place] tel:[phone] [place] No Information 7 Muehl Valentin. [address] [place] [address], [address], [place], [facility], [place]. tel: [phone] [address], [place], [place], [address], tel:[phone] [place] No Information Timothy-0 5-201 7 Muehl Valentin. [address] [place] [address], [address], [place], [facility], [place]. tel: [phone] [address], [place], [place], [address], [place] tel:[phone] [place] No Information Timothy-0 3-201 7 Muehl Valentin. [address] [place] [address], [address], [place], [facility], [place]. tel: [phone] [address], [place], [place], [address], tel:[phone] [place] No Information Dec-2 9-201 6 Muehl Valentin. [address] [place] [address], [address], [place], [facility], [place]. tel: [phone] [address], [place], [place], [address], tel:[phone] [place] No Information Dec-2 7-201 6 Muehl Valentin. [address] [place] [address], [address], [place], [facility], [place]. tel: [phone] [address], [place], [place], [address], [place] tel:[phone] [place] No Information Dec-2 2-201 6 Muehl Valentin. [address] [place] [address], [address], [place], [facility], [place]. tel: [phone] [address] [address], [place], [place], [address], tel:[phone] [place] No Information Dec-2 0-201 6 Muehl Valentin. [address] [place] [address], [address], [place], [address], [place]. tel: [phone] [facility] [address], [place], [place], [address], [place] tel:[phone] [place] No Information Dec-0 8-201 6 Muehl Valentin. [address] [place] [address], [address], [place], [address], [place]. tel: [phone] [address], [place], [place], [address], [place] tel:[phone] [place] No Information Dec-0 6-201 6 Muehl Valentin. [address] [place] [address], [address], [place], [address], [place]. tel: [phone] [facility] [address], [place], [place], [address], [place] tel:[phone] [place] No Information Dec-0 1-201 6 Muehl Valentin. [address] [place] [address], [address], [place], [address], [place]. tel: [phone] [address], [place], [place], [address], [place] tel:[phone] [place] No Information Nov-2 9-201 6 Muehl Valentin. [address] [place] [address], [address], [place], [address], [place]. tel: [phone] [address], [place], [place], [address], [place] tel:[phone] [place] No Information Nov-2 5-201 6 Muehl Valentin. [address] [place] [address], [address], [place], [address], [place]. tel: [phone] [address], [place], [place], [address], [place] tel:[phone] [place] No Information Nov-2 2-201 6 Muehl Valentin. [address] [place] [address], [address], [place], [address], [place]. tel: [phone] [facility] [address], [place], [place], [address], [place] tel:[phone] [place] No Information Nov-1 7-201 6 Muehl Valentin. [address] [place] [address], [address], [place], [address], [place]. tel: [phone] [address] [address] [address], [place], [place], [address], [place] tel:[phone] [place] No Information Nov-1 5-201 6 Muehl Valentin. [address] [place] [address], [address], [place], [address], [place]. tel: [phone] [address] [address] [facility], [place], [place], [address], [place] tel:[phone] [place] No Information Nov-1 0-201 6 Muehl Valentin. [address] [place] [address], [address], [place], [address], [place]. tel: [phone] [facility] [address], [place], [place], [address], [place] tel:[phone] [place] No Information Nov-0 8-201 6 Muehl Valentin. [address] [place] [address], [address], [place], [address], [place]. tel: [phone] [address] [address] [address], [place], [place], [address], [place] tel:[phone] [place] No Information Nov-0 3-201 6 Muehl Valentin. [address] [place] [address], [address], [place], [address], [place]. tel: [phone] [address] [address] [address], [place], [place], [address], [place] tel:[phone] [place] No Information Nov-0 1-201 6 Muehl Edelmira. [address] [place] [address], [address], [place], [address], [place]. tel: [phone] [facility] [address] [place], [place] [address], [place], [place], [address], tel:[phone] [place] No Information 6 Muehl Valentin. [address] [place] [address], [address], [place] [address], . tel: [phone] [facility] [address] [place], [place] [address], [place], [place], [address], tel:[phone] [place] No Information 5 6 Muehl Valentin. [address] [place] [address], [address], [place] [address], . tel: [phone] [facility] [address] [place] [address] [address], [place], [place], [address], tel:[phone] [place] No Information 0 6 Muehl Valentin. [address] [place] [address], [address], [place] [address], . tel: [phone] [facility] [address] [place], [place] [address], [place], [place], [address], tel:[phone] [place] No Information 6 Muehl Valentin. [address] [place] [address], [address], [place] [address], . tel: [phone] [address], [place], [place], [address], tel:[phone] [place] Pain in left shoulderEffusi on, left shoulderStiffn ess of left shoulder, not elsewhere classifiedComp lete rotatr-cuff tear/ruptr of left shoulder, not trauma 6 Muehl Valentin. [address] [place] [address], [address], [place] [address], . tel: [phone] Family History Family Member Type Diagnosis Age At Onset No Information Payers Payer name Insurance type Covered republican ID Margaret garcia(s) [employer] CI [id number] Social History Type Description Quantity Date Captured Comments Sex Female Smoking Status No Information Chief Complaint And Reason For Visit No Information Reason For Referral Reason For Referral No Information History Of Present Illness Encounter Date Complaint History Of Prese nt Illness No Information Functional Status Date Functional Assessmen t No Information Instructions Date Instruction Additional Infor mation No Information Assessments Type Assessment Date No Information Patient Care Teams Name Effective Dates (start - stop) Status Members No Information
--- NOTE | ~2025-07-06 | XR_ITS ---
EXAMINATION: XR hand RT min 3V DATE: 07/06/2025 17:10 INDICATION: Trauma right hand after fall. TECHNIQUE: 3 views of right hand were obtained. COMPARISON: None. FINDINGS: Fracture noted in the right hand. Severe arthritis involving first carpometacarpal joint, metacarpophalangeal joints of the second third and interphalangeal joints predominantly of first second third and fourth fingers. No evidence of soft tissue abnormalities. IMPRESSION: 1. No acute fracture. Significant arthritis at multiple joints as described above. If acute symptoms are persistent, repeat radiograph is suggested after a few days to rule out occult fracture. Reviewed, dictated and finalized at location T. RECONDITIONER IMPRESSION: 1. No acute fracture. Significant arthritis at multiple joints as described abo ve. If acute symptoms are persistent, repeat radiograph is suggested after a fe w days to rule out occult fracture.
--- NOTE | ~2025-07-06 | CT_ITS ---
EXAMINATION: CT brain wo con DATE: 07/06/2025 17:25 INDICATION: Head injury. Fell on concrete. TECHNIQUE: Computed tomography (CT) of the head was performed without intravenous contrast. The mA was adjusted according to patient size. Iterative reconstruction technique was employed. The dose-length product was 681.00 mGy-cm. COMPARISON: CT head dated 03/22/2023. FINDINGS: No acute intracranial bleed. No extra-axial collections. No evidence of midline shift. Soft tissue bruising and hematoma of the left maxillary region. No acute cranial fracture. IMPRESSION: 1. No acute intracranial bleed. No cranial fracture. Hematoma the scalp in the left frontal region and over the left maxillary region. Reviewed, dictated and finalized at location T. UNTING RECRUITER
--- NOTE | ~2025-07-06 | CT_ITS ---
EXAMINATION: CT C-spine and facial bones: DATE: 07/06/2025. INDICATION: Trauma due to fall. TECHNIQUE: CT scan through facial bones and C-spine obtained and reviewed in multiple projections. COMPARISON: None. FINDINGS: The orbital floors are intact. The zygomatic arches, nasal bones are intact. No acute fracture of the mandible. Soft tissue hematoma is noted over the left maxillary region. No acute fractures of the cervical vertebrae. Significant degenerative disc changes in the mid and lower C-spine. Soft tissues do not show acute findings in the neck. IMPRESSION: 1. No acute facial fractures. Soft tissue hematoma of the left maxillary region. 2. No acute fractures of cervical vertebrae. In multilevel degenerative disc disease of C-spine. Reviewed, dictated and finalized at location T. END ENGINEER IMPRESSION: 1. No acute facial fractures. Soft tissue hematoma of the left maxillary region . 2. No acute fractures of cervical vertebrae. In multilevel degenerative disc di sease of C-spine.
[2025-07-06 16:47] VITALS: BP 197/102; PULSE 84; RESP 20; O2SAT 99
--- NOTE | 2025-07-06 16:47 | ED_ITS ---
HPI - Fall General Chief Complaint: Fall <Marissa Amin APRN - Last Filed: 07/06/25 16:50> Stated Complaint: fall, left eyebrow lac, L leg lac <Marissa Amin APRN - Last Filed: 07/06/25 16:50> Time Seen by Provider: 07/06/25 16:47 <Marissa Amin APRN - Last Filed: 07/06/25 16:50> Focused HPI: Patient is a 70-year-old female presents to the ER after sustaining a fall. She reports she was excited and running out of her house when she missed 2 steps and landed on concrete. Patient is unsure whether not she lost consciousness. At time of examination patient has a laceration to her left upper orbital area, anterior left lower extremity, and right thumb. She denies any nausea/vomiting, numbness/tingling in her extremities, neck pain, or chest pain. Patient reports she is not on a blood thinner. Her medical history indicates she has a history of high blood pressure, abnormal thyroid, and bladder incontinence. GENERAL: Ill-appearing, obese, and in no acute distress. HEAD: Normocephalic, laceration to L upper orbital area, minimal oozing, mostly clotted CHEST: Clear to auscultation. ?No respiratory distress. HEART: Regular rate and rhythm.? NEURO: ?Alert and oriented x3. Able to follow commands Patient screened in triage and initial orders placed.? ?Additional care and d isposition to be based upon?diagnostic testing and treatment. <Marissa Amin APRN - Last Filed: 07/06/25 16:50> History of Present Illness HPI Narrative: Bruise PI rule <Luis Miguel Mesa MD - Last Filed: 07/06/25 18:34> Related Data Home Medications: Home Medications ?Medication ?Instructions ?Recorded ?Confirmed ?Last Taken ?Type acetaminophen 300 mg-codeine 30 mg tablet 03/22/23 Un known History tablet amlodipine 2.5 mg tablet mg 03/22/23 Unknown History cyanocobalamin (vitamin B-12) mcg 03/22/23 Unknown Hi story 1,000 mcg/mL injection solution duloxetine 60 mg capsule,delayed mg PO 03/22/23 Unkno wn History release furosemide 40 mg tablet mg 03/22/23 Unknown History hydrochlorothiazide 25 mg tablet mg 03/22/23 Unknown History levothyroxine 112 mcg tablet mcg 03/22/23 Unknown His tory oxybutynin chloride 10 mg mg PO 03/22/23 03/22/23 Unkn own History tablet,extended release 24 hr oxybutynin chloride 5 mg tablet mg 03/22/23 Unknown H istory polysaccharide iron complex 150 mg mg 03/22/23 Unknow n History iron capsule spironolactone 25 mg tablet mg 03/22/23 Unknown Histo ry <Marissa Amin APRN - Last Filed: 07/06/25 16:50> Allergies/Adverse Reactions: Allergies Allergy/AdvReac Type Severity Reaction Status Date / Time nabumetone Allergy Unknown Unknown Verified 08/22/19 23:37 pregabalin Allergy Unknown Unconscious Verified 08/22/19 23:37 <Marissa Amin DIRECTOR OF RESEARCH AND DEVELOPMENT - Last Filed: 07/06/25 16:50> Review of Systems Review of Systems: All systems reviewed & are unremarkable except as noted in HPI and below <Luis Miguel Mesa MD - Last Filed: 07/06/25 18:34> Constitutional: Constitutional: Reports no additional constitutional complaints <Luis Miguel Mesa MD - Last Filed: 07/06/25 18:34> Cardiovascular: Cardiovascular: Reports no additional cardiovascular complaints <Luis Miguel Mesa MD - Last Filed: 07/06/25 18:34> Respiratory: Respiratory: Reports no additional respiratory complaints <Luis Miguel Mesa MD - Last Filed: 07/06/25 18:34> Musculoskeletal: Musculoskeletal: Reports no additional musculoskeletal complaints <Luis Miguel Mesa MD - Last Filed: 07/06/25 18:34> Integumentary/Breasts: Skin/Breast: Reports system reviewed and no additional complaints, except as docu <Luis Miguel Mesa MD - Last Filed: 07/06/25 18:34> Neurologic: Reports system reviewed and no additional complaints, except as documented <Luis Miguel Mesa MD - Last Filed: 07/06/25 18:34> PMFSH Past Medical History Medical History: Medical History Fibromyalgia <Marissa Amin APRN - Last Filed: 07/06/25 16:50> Social History Social History: Social History Smoking status: Never smoker Alcohol intake: never Gender identity (if verbalized by the patient): Female <Marissa Amin APRN - Last Filed: 07/06/25 16:50> Exam Narrative: GENERAL: Well-appearing, well-nourished, and in no acute distress. HEAD: Normocephalic, 1.5 cm laceration left lateral supraorbital ridge. EYES: PERRL and EOMI. Left periorbital contusion. ENT: Mucous membranes moist. NECK: Supple. C-spine immobilized. CHEST: Clear to auscultation. No respiratory distress. HEART: Regular rate and rhythm. Normal peripheral pulses. ABDOMEN: Soft, nontender, nondistended. EXTREMITIES: Normal range of motion. No edema. SKIN: Warm, dry, abrasion right 1st MCP, and left lower lara. NEURO: Alert and oriented x3. <Luis Miguel Mesa MD - Last Filed: 07/06/25 18:34> Course Course Emergency Course: Laceration repaired. Imaging reviewed with patient and family. D/c. Tetanus updated <Luis Miguel Mesa MD - Last Filed: 07/06/25 18:34> Vital Signs Vital signs: Vital Signs Pulse Rate 84 07/06/25 16:47 Respiratory Rate 20 07/06/25 16:47 Blood Pressure 197/102 H 07/06/25 16:47 Pulse Oximetry 99 07/06/25 16:47 Oxygen Delivery Room Air 07/06/25 16:47 Pulse Rate 84 07/06/25 16:47 Respiratory Rate 20 07/06/25 16:47 Blood Pressure 197/102 H 07/06/25 16:47 Pulse Oximetry 99 07/06/25 16:47 Oxygen Delivery Room Air 07/06/25 16:47 <Marissa Amin APRN - Last Filed: 07/06/25 16:50> Vital Signs Pulse Rate 84 07/06/25 16:47 Respiratory Rate 20 07/06/25 16:47 Blood Pressure 197/102 H 07/06/25 16:47 Pulse Oximetry 99 07/06/25 16:47 Oxygen Delivery Room Air 07/06/25 16:47 Pulse Rate 84 07/06/25 16:47 Respiratory Rate 20 07/06/25 16:47 Blood Pressure 197/102 H 07/06/25 16:47 Pulse Oximetry 99 07/06/25 16:47 Oxygen Delivery Room Air 07/06/25 16:47 <Luis Miguel Mesa MD - Last Filed: 07/06/25 18:34> Procedures Laceration Laceration 1: Date: 07/06/25 <Luis Miguel Mesa MD - Last Filed: 07/06/25 18:34> Site: face <Luis Miguel Mesa MD - Last Filed: 07/06/25 18:34> Side (If applicable): left <Luis Miguel Mesa MD - Last Filed: 07/06/25 18:34> Size (cm): 1.5 <Luis Miguel Mesa MD - Last Filed: 07/06/25 18:34> Description: linear <Luis Miguel Mesa MD - Last Filed: 07/06/25 18:34> Depth: simple, single layer <Luis Miguel Mesa MD - Last Filed: 07/06/25 18:34> Local Anesthetic: lidocaine 1% and with epi <Luis Miguel Mesa MD - Last Filed: 07/06/25 18:34> Amount of anesthesia used (mL): 2 <Luis Miguel Mesa MD - Last Filed: 07/06/25 18:34> Pre-repair: wound explored and irrigated <Luis Miguel Mesa MD - Last Filed: 07/06/25 18:34> ====== Skin Level ======: Skin layer closed with: prolene <Luis Miguel Mesa MD - Last Filed: 07/06/25 18:34> Size (cm): 5-0 <Luis Miguel Mesa MD - Last Filed: 07/06/25 18:34> Number of sutures: 4 <Luis Miguel Mesa MD - Last Filed: 07/06/25 18:34> Technique: simple, interrupted <Luis Miguel Mesa MD - Last Filed: 07/06/25 18:34> ====== Subcutaneous Layer ======: ====== Muscle Layer ======: ====== Tendon Layer ======: MDM Differential Diagnosis Differential Diagnosis: Concussion, intracranial injury, cervical injury/fracture, tetanus exposure, foreign body laceration, contusion facial fracture <Luis Miguel Mesa MD - Last Filed: 07/06/25 18:34> Imaging Data Radiologist's impression: ITS Impressions Hand X-Ray 07/06/25 17:13 IMPRESSION: 1. No acute fracture. Significant arthritis at multiple joints as described above. If acute symptoms are persistent, repeat radiograph is suggested after a few days to rule out occult fracture. Head CT 07/06/25 17:33 IMPRESSION: 1. No acute intracranial bleed. No cranial fracture. Hematoma the scalp in the left frontal region and over the left maxillary region. Head/Cervical Spine/Facial Bones CT 07/06/25 17:36 IMPRESSION: 1. No acute facial fractures. Soft tissue hematoma of the left maxillary region. 2. No acute fractures of cervical vertebrae. In multilevel degenerative disc disease of C-spine. <Marissa Amin APRN - Last Filed: 07/06/25 16:50> ITS Impressions Hand X-Ray 07/06/25 17:13 IMPRESSION: 1. No acute fracture. Significant arthritis at multiple joints as described above. If acute symptoms are persistent, repeat radiograph is suggested after a few days to rule out occult fracture. Head CT 07/06/25 17:33 IMPRESSION: 1. No acute intracranial bleed. No cranial fracture. Hematoma the scalp in the left frontal region and over the left maxillary region. Head/Cervical Spine/Facial Bones CT 07/06/25 17:36 IMPRESSION: 1. No acute facial fractures. Soft tissue hematoma of the left maxillary region. 2. No acute fractures of cervical vertebrae. In multilevel degenerative disc disease of C-spine. <Luis Miguel Mesa MD - Last Filed: 07/06/25 18:34> Discharge Plan Discharge Clinical Impression: Laceration, Contusion of face <Marissa Amin APRN - Last Filed: 07/06/25 16:50> Patient Disposition: Home <Marissa Amin APRN - Last Filed: 07/06/25 16:50> Condition: Stable <Marissa Amin APRN - Last Filed: 07/06/25 16:50> Instructions: Care For Your Stitches (ED), Black Eye (ED) <Marissa Amin APRN - Last Filed: 07/06/25 16:50> Additional Instructions: Return to the ER if you lose consciousness, you suffered a new injury, you develop chest pain with shortness of breath, or you have additional concerns. Your tetanus shot was updated today. <Marissa Amin APRN - Last Filed: 07/06/25 16:50> Patient Language: Turkish <Marissa Amin APRN - Last Filed: 07/06/25 16:50> Prescriptions: New hydrocodone-acetaminophen 5-325 mg tablet 1 tablet PO Q6H PRN (Reason: pain) Qty: 6 0RF No Action cephalexin 500 mg capsule 500 mg PO Q6H Qty: 28 0RF furosemide 40 mg tablet oxybutynin chloride 10 mg tablet extended release 24hr PO polysaccharide iron complex 150 mg iron capsule amlodipine 2.5 mg tablet acetaminophen-codeine 300-30 mg tablet spironolactone 25 mg tablet cyanocobalamin (vitamin B-12) 1,000 mcg/mL solution hydrochlorothiazide 25 mg tablet oxybutynin chloride 5 mg tablet levothyroxine 112 mcg tablet duloxetine 60 mg capsule,delayed release(DR/EC) PO ondansetron HCl 4 mg tablet 4 mg PO Q8H PRN (Reason: nausea and vomiting) 5 Days Qty: 20 0RF <Marissa Amin APRN - Last Filed: 07/06/25 16:50> Follow-up/Referrals: PHYSICIAN NOT ON STAFF,NONSTAFF [Primary Care Provider] - 1 Week PHYSICIAN,[facility] [employer] [Non-Staff, Internal Medicine] <Marissa Amin APRN - Last Filed: 07/06/25 16:50>
--- NOTE | 2025-07-06 16:47 | PC.NURSE ---
C-collar placed by RN.
--- OUTSIDE RECORDS SUMMARY | 2025-07-06 17:02 | XMS_ITS | Clinical Summary ---
Author Organization [facility] Address [address] [place] [address] Care Team Providers Care Heddler Tier Name Role Phone Fred Figueroa MD Primary Care Provider + Source Comments [facility],non-owned Affiliates and Associated Physician Practices is amultiple site organization consisting of ambulatory clinics and hospital sitesin [place], [place], [place] and [place]. This disclosure is being madepursuant to the Care Everywhere program and may not contain all information available regarding this patient. Last updated 18.[facility] Medications * Be aware that medications may not be up to date on this document. Alwaysverify current medications with the patient. Levothyroxine Sodium (LEVOTHROID PO) Take 112 mcg by mouth once daily Active DULoxetine (Cymbalta) 60 MG capsule Take 1 (one) capsule by mouth once daily Active traZODone (DESYREL) 50 MG tablet Take 1 (one) tablet by mouth at bedtime Active multivitamin daily (THERAGRAN) tablet Take 1 (one) tablet by mouth daily with food Active amLODIPine (Norvasc) 2.5 MG tablet Take 1 (one) tablet by mouth at bedtime Active iron polysaccharides (Niferex 150) 150 MG capsule Take 1 (one) capsule by mouth once daily after lunch 30 capsule 1 3 Active HYDROcodone-acetamin ophen ([place]) 10-325 MG tabletIndications:Ga strointestinal hemorrhage with melena Take 1 (one) tablet by mouth every 4 hours as needed 12 tablet 3 Active Active Problems Problem Noted Date Diagnosed Date 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 Pate/MELQUIADES 11/2022 - clip placed History of adenomatous polyp of colon - large po lyp 11/23/2022 Overview (11/24/2022): Dr. Pate/MELQUIADES 2 DAYS PREP 11/29 x2 (13 mm at 10 cm, tattooed) Gastrointestinal hemorrhage with melena 11/23/19 Status following gastric banding surgery for ophelia ght loss 06/06/2011 Preop examination 01/22/2010 Back pain 01/22/2010 Leg swelling 01/22/2010 Neck pain 01/22/2010 Hypertension 01/22/2010 Hypothyroidism 01/22/2010 Depression 01/22/2010 Sleep apnea 01/22/2010 Dyspnea on exertion 01/22/2010 Female stress incontinence 01/22/2010 Morbid obesity 06/19/2009 Social History Tobacco Use Types Packs/Day Years Used Date Smoking Tobacco: Never Passive Smoke Exposure: Past Smokeless Tobacco: Never Tobacco Cessation:Counseling Given: Yes Alcohol Use Standard Drinks/Week Comments Never 0 (1 standard drink = 0.6 oz pur e alcohol) Overall Financial Resource Strain (CARDIA) Answe r Date Recorded How hard is it for you to pa y for the very basics like food, housing, medical care, and heating? Not hard at all 11/22/2022 [facility] [place] [facility] Occup[facility] - Occupational Stress Questionnaire Answer Date Recorded Do you feel stress - tense, restless, nervous, or anxious, or unable to sleep at night because your mind is troubled all the time - these days? Only a little 11/22/2022 Hunger Vital Sign Answer Date Recorded Within the past 12 months, y ou worried that your food would run out before you got the money to buy more. Never true 11/23/19 Within the past 12 months, t he food you bought just didn't last and you didn't have money to get more. Never true 11/22/2022 PRAPARE - Transportation Answer Date Re corded In the past 12 months, has l ack of transportation kept you from medical appointments or from getting medications? No 11/07 In the past 12 months, has l ack of transportation kept you from meetings, work, or from getting things needed for daily living? No 11/22/2022 Housing Stability Vital Sign Answer King e Recorded In the last 12 months, was t here a time when you were not able to pay the mortgage or rent on time? No 11/22/2022 In the last 12 months, how many places have you lived? 1 11/22/2022 In the last 12 months, was t here a time when you did not have a steady place to sleep or slept in a care home (including now)? No 11/22/2022 Education Answer Date Recorded What is the highest level of school you have completed or the highest degree you have received? 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 Gender Identity Not on file Sexual Orientation Not on file Last Filed Vital Signs Vital Sign Reading Time Taken Comments Blood Pressure 131/74 11/26/2022 11:12 AM CDT Pulse 66 11/26/2022 11:12 AM CDT Temperature 36.4 C (97.6 F) 11/26/2022 11:12 AM CDT Respiratory Rate 18 11/26/2022 11:12 AM CDT Oxygen Saturation 100% 11/26/2022 11:12 AM CDT Inhaled Oxygen Concentration - - Weight 88.5 kg (195 lb) 11/22/2023 10:17 AM CDT Height 154.9 cm (5' 1) 11/22/2023 10:17 AM CDT Body Mass Index 36.84 11/22/2023 10:17 AM CDT Plan of Treatment Health Maintenance Due Date Last Done Comments COLOGUARD (AGES 45-75) - COL ON CA SCREENING 1955 [address] COLONOGRAPHY - COLON CA SCREENING 1955 FIT - COLON CA SCREENING 1955 FLEX SIG - COLON CA SCREENING 1955 MEDICARE AWV 12 MONTHS 1955 HEPATITIS C SCREENING 12/27/1973 DTAP/TDAP/TD VACCINES (1 - Tdap) 12/31/1974 PNEUMOCOCCAL VACCINE 50+ (1 of 1 - PCV) 12/31/2005 ZOSTER VACCINE (1 of 2) 12/31/2005 LIPID TESTING 01/27/2015 01/27/2010 DEPRESSION SCREENING 07/10/2024 COVID-19 VACCINE (3 - 2024-2 6 season) 2025 09/25/2020, 08/28/2020 INFLUENZA VACCINE (#1) 2025 , 04/25/2020 MAMMOGRAM 11/21/2025 11/22/2023, 11/22/2023 Respiratory Syncytial Virus (RSV) Vaccine Pt: or over 60 yrs (1 - 1-dose 75+ series) 12/31/2030 COLON MONITORING 11/23/2032 11/23/2022, 11/23/2022, 12/02/2020 COLONOSCOPY - COLON CA SCREENING 11/23/2032 11/23/2022, 11/23/2022, 12/02/2020 Colorectal Cancer Screening 11/23/2032 BONE DENSITY TESTING Completed 01/10/2024 HEPATITIS B VACCINE Aged Out No longe r eligible based on patient's age to complete this topic HIB VACCINE Aged Out No longer eligi ble based on patient's age to complete this topic HPV VACCINE Aged Out No longer eligi ble based on patient's age to complete this topic MENINGOCOCCAL (Group B) VACCINE SHARED DECISION-MAKING Aged Out No longer eligible based on patient's age to complete this topic MENINGOCOCCAL GROUPS A/C/Y/W VACCINE Aged Out No longer eligible b ased on patient's age to complete this topic Procedures Procedure Name Priority Date/Time Associated Diagnosis Comments DEXA BONE DENSITY AXIAL SKELETON Routine 01/10/2024 1:43 PM CDT Menopause MAMMO BILAT SCREENING W CAROLYN Routine 11/22/2023 10:18 AM CDT Visit for screening mammogram ENDOSCOPY, COLON, DIAGNOSTIC Routine 11/23/2022 9:25 AM CDT LIPID PROFILE Routine 01/27/2010 2:46 PM CDT Preop Examination Back Pain Leg Swelling Neck Pain Hypertension Hypothyroidism Depression Sleep Apnea Dyspnea on Exertion Urinary Incontinence, Stress Morbid Obesity from Last 3 Months or Most Recently Relevant to Health Maintenance Results * DEXA BONE DENSITY AXIAL SKELETON (01/10/2024 1:43 PM CDT) Anatomical Region Laterality Modality Nuclear Medicine 01/10/2024 1:45 PM CDT Impressions 01/10/2024 1:47 PM CDT IMPRESSION: Moderate osteopenia of the right femoral neck. Patient is at increased risk for osteoporotic fractures. One may wish to begin therapeutic intervention. Continue routine screening interval. > Interpreting Provider: Diogo Santana MD on 01/10/2024 1:47 PM Narrative 01/10/2024 1:47 PM CDT Procedure: DEXA BONE DENSITY AXIAL SKELETON Exam Date: 01/10/2024 1:43 PM Location: [facility] Bone densitometry INDICATION: Patient postmenopausal. FINDINGS: The bone mineral density of the lumbar spine is 1.371 g/sq cm. The T score is 1.6. This is in the normal range. The bone mineral density of the left femoral neck is 0.952 g/sq cm. The T score is -0.6. This is in the normal range. The bone mineral density of the left total hip is 1.160 g/sq cm. The T score is 1.2. This is in the normal range. The bone mineral density of the right femoral neck is 0.792 g/sq cm. The T score is -1.8. This is in the moderately osteopenic range. The bone mineral density of the right total hip is 0.997 g/sq cm. The T score is -0.1. This is in the normal range. FRAX Assessment: The probability of a major osteoporotic fracture is 15.5% within the next 10 years. The probability of hip fracture 2.2% within the next 10 years. Procedure Note Diogo Santana MD - 01/10/2024 Procedure: DEXA BONE DENSITY AXIAL SKELETON Exam Date: 01/10/2024 1:43 PM Location: [facility] Bone densitometry INDICATION: Patient postmenopausal. FINDINGS: The bone mineral density of the lumbar spine is 1.371 g/sq cm. The Tscore is 1.6. This is in the normal range. The bone mineral density of the left femoral neck is 0.952 g/sq cm. TheT score is -0.6. This is in the normal range. The bone mineral density ofthe left total hip is 1.160 g/sq cm. The T score is 1.2. This is in thenormal range. The bone mineral density of the right femoral neck is 0.792 g/sq cm. TheT score is -1.8. This is in the moderately osteopenic range. The bonemineral density of the right total hip is 0.997 g/sq cm. The T score is -0.1.This is in the normal range. FRAX Assessment: The probability of a major osteoporotic fracture is15.5% within the next 10 years. The probability of hip fracture 2.2% withinthe next 10 years. IMPRESSION: Moderate osteopenia of the right femoral neck. Patient is at increased risk for osteoporotic fractures. One may wish to begin therapeutic intervention. Continue routine screening interval. > Interpreting Provider: Diogo Santana MD on 01/10/2024 1:47 PM Fred Figueroa MD DEXA ORDERABLES Final Re sult * MAMMO BILAT SCREENING W CAROLYN (11/22/2023 10:18 AM CDT) Anatomical Region Laterality Modality Breast Bilateral Mammography 11/22/2023 11:4 2 AM CDT Impressions 11/22/2023 11:44 AM CDT : There is no mammographic evidence of malignancy. OVERALL FINAL ASSESSMENT: BI-RADS Category 1: Negative. Annual screening mammography is recommended. > Interpreting Provider: Bonnie Anglin MD on 11/22/2023 11:44 AM Narrative 11/22/2023 11:44 AM CDT EXAMINATION: BILATERAL DIGITAL SCREENING MAMMOGRAM AND BILATERAL BREAST TOMOSYNTHESIS HISTORY: Screening. COMPARISON: This is the patient's baseline mammogram. . TECHNIQUE: BILATERAL digital breast tomosynthesis (DBT) and synthetic 2D digital mammogram images were obtained (bilateral craniocaudal and mediolateral oblique projections) including computer aided detection (CAD.) BREAST PARENCHYMAL COMPOSITION:Category A: The breasts are almost entirely fatty. MAMMOGRAM FINDINGS: There are no suspicious masses, calcifications, or areas of architectural distortion in either breast. us Fred Figueroa MD MAMMO ORDERABLES Final R esult * ENDOSCOPY, COLON, DIAGNOSTIC (11/23/2022 9:25 AM CDT) Report Endoscopy POC __ _ Patient Name: Heidy Rojasnett Procedure Date: 11/23/2022 9:25 AM Date of : 1955 Admit Type: Outpatient Age: 67 Gender: Female Attending MD: Fransisco Pate MD, [id number] __ _ Procedure: Colonoscopy Indications: Melena, Acute post hemorrhagic anemia, Negative EGD for pathology to explain blood loss Providers: Fransisco Pate MD (Doctor) Patient Profile: This is a 67 year old female. Referring MD: Fransisco Pate MD (Referring MD) Medicines: Monitored Anesthesia Care Complications: No immediate complications. Estimated blood loss: Minimal. __ _ Estimated Blood Loss: Estimated blood loss was minimal. Procedure: Pre-Anesthesia Assessment: - Prior to the procedure, a History and Physical was performed, and patient medications and allergies were reviewed. The patient's tolerance of previous anesthesia was also reviewed. The risks and benefits of the procedure and the sedation options and risks were discussed with the patient. All questions were answered, and informed consent was obtained. Prior Anticoagulants: The patient has taken no anticoagulant or antiplatelet agents. ASA Grade Assessment: III - A patient with severe systemic disease. After reviewing the risks and benefits, the patient was deemed in satisfactory condition to undergo the procedure. After I obtained informed consent, the scope was passed under direct vision. Throughout the procedure, the patient's blood pressure, pulse, and oxygen saturations were monitored continuously. The Colonoscope was introduced through the anus and advanced to the cecum, identified by appendiceal orifice and ileocecal valve. The colonoscopy was performed with difficulty due to significant looping. Successful completion of the procedure was aided by changing the patient to a supine position, using manual pressure, straightening and shortening the scope to obtain bowel loop reduction and using scope torsion. The patient tolerated the procedure well. The quality of the bowel preparation was fair. The ileocecal valve, appendiceal orifice, and rectum were photographed. Findings: The perianal and digital rectal examinations were normal. Hematin (altered blood/coffee-ground -like material) was found in the entire colon. A 4 mm polyp was found in the splenic flexure. The polyp was sessile. The polyp was removed with a cold snare. Resection and retrieval were complete. Verification of patient identification for the specimen was done. Estimated blood loss was minimal. A 13 mm polyp was found in the mid rectum at 10 cm proximal to the anus. The polyp was sessile. The polyp was removed with a hot snare. Resection and retrieval were complete. Verification of patient identification for the specimen was done. Estimated blood loss: none. Area was tattooed with an injection of 4 mL of Laura ink. The exam was otherwise without abnormality on direct and retroflexion views. __ _ Impression: - Preparation of the colon was fair. - Blood in the entire examined colon. - One 4 mm polyp at the splenic flexure, removed with a cold snare. Resected and retrieved. - One 13 mm polyp in the mid rectum at 10 cm proximal to the anus, removed with a hot snare. Resected and retrieved. Tattooed. - The examination was otherwise normal on direct and retroflexion views. Recommendation: - The future colonoscopies will be done with 2 day prep. - Repeat colonoscopy in 1 year because the bowel preparation was poor - to be done by the patient's local GI specialist. - Resume regular diet. - Continue present medications. - Await pathology results. Procedure Code(s): --- Professional --- 27109, Colonoscopy, flexible; with removal of tumor(s), polyp(s), or other lesion(s) by snare technique 42137, Colonoscopy, flexible; with directed submucosal injection(s), any substance --- Technical --- 95058, Colonoscopy, flexible; with removal of tumor(s), polyp(s), or other lesion(s) by snare technique [id number], Colonoscopy, flexible; with directed submucosal injection(s), any substance Diagnosis Code(s): --- Professional --- K92.2, Gastrointestinal hemorrhage, unspecified D12.3, Benign neoplasm of transverse colon (hepatic flexure or splenic flexure) D12.8, Benign neoplasm of rectum K92.1, Melena (includes Hematochezia) D62, Acute posthemorrhagic anemia --- Technical --- K92.2, Gastrointestinal hemorrhage, unspecified D12.3, Benign neoplasm of transverse colon (hepatic flexure or splenic flexure) D12.8, Benign neoplasm of rectum K92.1, Melena (includes Hematochezia) D62, Acute posthemorrhagic anemia CPT copyright 2020 [employer]. All rights reserved. The codes documented in this report are preliminary and upon commercial designer review may be revised to meet current compliance requirements. Fransisco Pate MD 11/23/2022 10:20:20 AM This report has been signed electronically. Number of Addenda: 0 Note Initiated On: 11/23/2022 9:25 AM [facility] 11/23/2022 9:25 AM CDT Fransisco Pate MD GI PROCEDURE ORDERABLES Edited Result - Final [facility] * (ABNORMAL) LIPID PROFILE (01/27/2010 2:46 PM CDT) Cholesterol 252(H) 120.0 - 200.0 mg/dl [facility] Triglycerides 209 0.0 - 250.0 mg/dl [facility] HDL Cholesterol 48 >40 mg/dl [facility] LDL Calculated 162.2 mg/dl [facility] Chol HDL Ratio 5.3 [facility] Comment Lipid [facility] Comment: Risk Classification HDL CHOL LDL CHOL TOTAL CHOL According to NCEP (mg/dl) (mg/dL) (mg/dl) Desirable >40 <130 < 200 Borderline/High - 130-159 200-239 High - >159 > 239 The total cholesterol to HDL cholesterol ratio may be used to predict risk for coronary heart disease in untreated patients according to data reported from the [place] Study by Josh Quiles M.D. The predictive value in patients over 60 years of age is uncertain. Risk TOTAL CHOL/HDL RATIO MEN WOMEN 1/2 Average 3.43 3.27 Average 4.97 4.44 2X Average 9.55 7.05 3X Average 23.39 11.04 In Coronary Artery Disease patients, in whom nonpharmacological therapy has failed, the AHA recommends that drug therapy should be prescribed to lower LDL cholesterol to <100mg/dL. Drug therapy may be instituted in patients with HDL <35mg/dL. The reported LDL is a calculated result. For a more precise measurement, a direct LDL test is available, as necessary. BLOOD SPECIMEN / Unknown 01/27/2010 2:46 PM CDT 01/27/2010 2:46 PM CDT Lukas Rojas MD LAB - CHEMISTRY ORDERABLE S Final Result [facility] [id number] [place] [address] from Last 3 Months or Most Recently Relevant to Health Maintenance Insurance BCBS/BLUE BLUE [employer] [facility] Address: [address] [place] [address] [employer] Advance Directives * Full Code (Latest Code Status on File) Date Activated Date Inactivated Comments 11/22/2022 5:58 AM 11/26/2022 3:32 PM * Full Code Date Activated Date Inactivated Comments 02/11/2010 2:26 PM 02/14/2010 2:45 AM Care Teams Heddler Tier Relationship Specialty Start Date End Date Fred Figueroa MD [address] [phone] [facility] - General 05/11/10
--- OUTSIDE RECORDS SUMMARY | 2025-07-06 17:02 | XMS_ITS | Clinical Summary ---
Author Organization [facility] Address [address] [place] [id number] Care Team Providers Care Spirits Model Name Role Phone None, Provider MD Primary Care Provider Unavaila ble Allergies No known active allergies Medications No known medications Social History Tobacco Use Types Packs/Day Years Used Date Smoking Tobacco: Never Assessed Comments Unknown Sex and Gender Information Value Date Recorded Sex Assigned at Female 03/24/2025 12:20 AM CDT Legal Sex Female 11:55 PM CDT Gender Identity Female 03/24/2025 12:20 AM CDT Sexual Orientation Straight 03/24/2025 12 :20 AM CDT Last Filed Vital Signs Vital Sign Reading Time Taken Comments Blood Pressure 156/81 03/24/2025 12:00 AM CDT Pulse 85 03/24/2025 12:00 AM CDT Temperature 36.4 C (97.5 F) 03/24/2025 12:00 AM CDT Respiratory Rate 20 03/24/2025 12:00 AM CDT Oxygen Saturation 98% 03/24/2025 12:00 AM CDT Inhaled Oxygen Concentration - - Weight 83.9 kg (185 lb) 03/24/2025 12:00 AM CDT Height 154.9 cm (5' 1) 03/24/2025 12:00 AM CDT Body Mass Index 34.96 03/24/2025 12:00 AM CDT Plan of Treatment Health Maintenance Due Date Last Done Comments Colorectal Cancer Screening Colonoscopy (10 Years) 1955 Hepatitis C 12/31/1973 DTaP, Tdap and Td Vaccines ( 1 - Tdap) 12/31/1974 Annual Medicare Wellness Visit 12/31/2020 COVID-19 Vaccine (4 - 2024-2 6 season) 2025 05/06/2024, 09/25/2020, 08/28/2020 Influenza Adult (#1) 2025 05/06/2024, 05/09/2022, 04/25/2020 Mammogram Screening 11/21/2025 11/22/2023 RSV Immunization or 60+ Years (1 - 1-dose 75+ series) 12/31/2030 Zoster Vaccines Completed 07/13/2020, 04/25/2020 Pneumococcal Vaccine: 50+ Years Completed 05/09/2022 Dexa Scan (General) Completed 01/10/2024, 01/10/2024 Hepatitis A Vaccines Aged Out No long er eligible based on patient's age to complete this topic Meningococcal B Vaccine Aged Out No l onger eligible based on patient's age to complete this topic Meningococcal Vaccine Aged Out No danny tho eligible based on patient's age to complete this topic RSV Immunizations Under 20 Months Aged Out No longer eligible b ased on patient's age to complete this [place] [address] [facility] MEDICARE Care Teams Spirits Model Relationship Specialty Start Date End Date None, Provider, MD PCP - General UNKNOWN PHYSICIAN SPECIALTY 03/24/25
--- OUTSIDE RECORDS SUMMARY | 2025-07-06 17:02 | XMS_ITS | Clinical Summary ---
Author Organization [facility] Address [address] [place] [address] Care Team Providers Care Personal Banker Name Role Phone Unavailable Primary Care Provider Unavailabl e Encounters Date Type Department Care Team Description 07/01/2025 External Device Data [facility] Provider, Abstract 07/01/2025 External Device Data [facility] Provider, Abstract 05/27/2025 External Device Data [facility] Provider, Abstract 05/07/2025 External Device Data [facility] Provider, Abstract 05/07/2025 External Device Data [facility]CTION Provider, Abstract 04/30/2025 External Device Data [facility]STRACTION Provider, Abstract 04/29/2025 External Device Data [facility] Provider, Abstract from Last 3 Months Social History Tobacco Use Types Packs/Day Years Used Date Smoking Tobacco: Never Assessed Comments Unknown Sex and Gender Information Value Date Recorded Sex Assigned at Not on file Legal Sex Female 9:24 PM CDT Gender Identity Not on file Sexual Orientation Not on file Plan of Treatment Health Maintenance Due Date Last Done Comments DTAP/TDAP/TD VACCINES (1 - Tdap) 12/31/1974 FIT-DNA Q 3 years 12/31/2000 FIT/FOBT Q 1 year 12/31/2000 Flex Sig/CT Colonography Q 5 years 12/31/2000 PNEUMOCOCCAL VACCINE 50+ YEA RS (1 of 1 - PCV) 12/31/2005 RSV VACCINE (60+ or ) (1 - Risk 50-74 years 1-dose series) 12/31/2005 ZOSTER VACCINE (1 of 2) 12/31/2005 BREAST CANCER SCREENING 11/21/2024 11/22/2023, 11/21 INFLUENZA VACCINE (#1) 2025 OSTEOPOROSIS SCREENING 01/09/2029 01/10/2024, 2023 COLORECTAL SCREENING 11/23/2032 11/23/2022 Colorectal Cancer Screening 11/23/2032 Insurance
--- OUTSIDE RECORDS SUMMARY | 2025-07-06 17:02 | XMS_ITS | Encounter Summary ---
Author Organization [facility] Address [address] [place] [address] Phone Care Team Providers Care Program Review Director Name Role Phone Ernie Watkins MD Primary Car e Provider Encounter Details Date Type Department Care Team (Latest Contact Info) Description 02/19/2025 Orders Only [facility]/WRIST Scanning, Provider Social History Tobacco Use Types Packs/Day Years Used Date Smoking Tobacco: Never Smokeless Tobacco: Never Alcohol Use Standard Drinks/Week Comments No 0 (1 standard drink = 0.6 oz pur e alcohol) AUDIT-C Answer Date Recorded Q1: How often do you have a drink containing alcohol? Never 05/24/2024 Q2: How many drinks containi ng alcohol do you have on a typical day when you are drinking? Patient does not drink Q3: How often do you have si x or more drinks on one occasion? Never 05/24/2024 Personal Safety Answer Date Recorded Have you ever been in or are you currently in a harmful physical or emotional relationship or is someone making you feel afraid or unsafe? 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 Gender Identity Not on file Sexual Orientation Not on file documented as of this encounter Plan of Treatment Not on file documented as of this encounter Procedures Procedure Name Priority Date/Time Associated Diagnosis Comments SCAN - RADIOLOGY/IMAGING 02/19/2025 documented in this encounter Results * SCAN - RADIOLOGY/IMAGING (02/19/2025) Anatomical Region Laterality Modality Other us Provider Scanning Final Result documented in this encounter Visit Diagnoses Not on filedocumented in this encounter Care Teams Program Review Director Relationship Specialty Start Date End Date Ernie Watkins MD [address] [id number] PCP - General Internal Medicine 10/09/24 documented as of this encounter
--- OUTSIDE RECORDS SUMMARY | 2025-07-06 17:02 | XMS_ITS | Clinical Summary ---
Author Organization [facility] Address [address] [place] [address] Care Team Providers Care Industrial Pipefitter Journeyman Name Role Phone Ernie Watkins MD Primary Car e Provider Allergies No known active allergies Medications DULoxetine DR (MIGUELITOMBALTA) 60 mg capsuleIndication s:major depressive disorder Take 1 capsule (60 mg total) by mouth every morning 8 Active levothyroxine (SYNTHROID, LEVOTHROID) 112 mcg tabletIndications :hypothyroidism Take 1 tablet (112 mcg total) by mouth r&d engineer before breakfast 8 Active FeroSuL 325 mg (65 mg iron) tabletIndications :Iron Deficiency Anemia,MWF Take 1 tablet (325 mg total) by mouth 3 (three) times a week Mon, Wed, Fri Active lamoTRIgine (LaMICtal) 25 mg tabletIndications :Depression associated with Bipolar Disorder Take 3 tablets (75 mg total) by mouth with lunch 3 Active oxyBUTYnin XL (DITROPAN-XL) 10 mg 24 hr tabletIndications :Bladder Hyperactivity Take 1 tablet (10 mg total) by mouth nightly Active ergocalciferol (VITAMIN D) 50,000 unit capsuleIndication s:Vitamin D Deficiency Take 1 capsule (50,000 Units total) by mouth once a week 12 capsule 3 Active cyanocobalamin (Vitamin B-12) 1,000 mcg tabletIndications :Prevention of Vitamin B12 Deficiency Take 1 tablet (1,000 mcg total) by mouth r&d engineer before breakfast 4 Active cyclobenzaprine (FLEXERIL) 10 mg tabletIndications :Muscle Spasm Take 1 tablet (10 mg total) by mouth 3 (three) times a day as needed for muscle spasms 30 tablet 4 Active Additional Information Patient taking differently:10 mg oral 3 times daily PRN, muscle spasms,(No indications reported), Informant: Self, Reported on 05/24/2024 loratadine (CLARITIN) 10 mg tablet Take 1 tablet (10 mg total) by mouth daily as needed for allergies Active HYDROcodone-aceta minophen (NORCO) 10-325 mg per tabletIndications :Pain Take 1 tablet by mouth every 4 (four) hours as needed for pain Active cannabidiol, CBD, (CANNABIDIOL ORAL) Take 1 tablet by mouth nightly as needed (sleep) Active HYDROcodone-aceta minophen (NORCO) 5-325 mg per tabletIndications :Pain Take 1 tablet by mouth every 4 (four) hours as needed for pain Take for break through pain not controlled by your pre-existing pain regimen. 16 tablet 4 Active naloxone (NARCAN) 4 mg/actuation spray,non-aerosol Administer 1 spray into affected nostril(s) as needed for opioid reversal Call 911. Administer a single spray in one nostril. Repeat every 3 minutes as needed if no or minimal response. 2 each 4 Active amLODIPine (NORVASC) 10 mg tablet Take 1 tablet (10 mg total) by mouth daily 4 Active nitrofurantoin monohydrate (MACROBID) 100 mg capsule TAKE 1 CAPSULE BY MOUTH EVERY 12 HOURS WITH FOOD 4 Active potassium chloride ER 20 mEq CR tablet Take by mouth daily 4 Active losartan (COZAAR) 25 mg tablet Take 1 tablet (25 mg total) by mouth daily 4 Active cetirizine (ZyrTEC) 10 mg tablet Take 1 tablet (10 mg total) by mouth daily 5 Active furosemide (LASIX) 20 mg tablet TAKE 1 TABLET BY MOUTH EVERY DAY NEEDED FOR LEG SWELLING 5 Active losartan (COZAAR) 50 mg tablet Take 1 tablet (50 mg total) by mouth daily 5 Active naproxen (NAPROSYN) 500 mg tablet Take 1 tablet (500 mg total) by mouth 2 (two) times a day with meals 5 Active Active Problems Problem Noted Date Diagnosed Date Closed displaced fracture of shaft of fifth metacarpal bone of left hand 02/22/2025 Spontaneous rupture of flexor tendon of right fo rearm 05/24/2024 Flexor carpi radialis tendinitis 04/29/2024 Rupture of flexor tendon of right hand 4 Absolute anemia 08/23/2023 Acquired tortuosity of branch of aortic arch Degenerative joint disease of hand 08/23/2023 Hyperparathyroidism 08/23/2023 Primary localized osteoarthrosis of shoulder reg ion 08/23/2023 Urinary incontinence 08/23/2023 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 Pate/GI 11/2022 - clip placed Gastrointestinal hemorrhage with melena 11/23/19 23 Stage 3a chronic kidney disease 04/15/2020 Hypertensive renal disease 10/12/2015 Status following gastric banding surgery for ophelia ght loss 06/06/2011 Hypertension 01/22/2010 Back pain 01/22/2010 Depression 01/22/2010 Dyspnea on exertion 01/22/2010 Female stress incontinence 01/22/2010 Leg swelling 01/22/2010 Neck pain 01/22/2010 Preop examination 01/22/2010 Sleep apnea 01/22/2010 Morbid obesity 06/19/2009 Pure hypercholesterolemia 12/31/2002 Recurrent major depressive episodes, moderate Hypothyroidism 12/27/2001 Disorder of skeletal muscle 08/13/2001 Chronic pain 09/16/1999 Encounters Date Type Department Care Team Description 05/02/2025 10:15 AM CDT - 05/02/2025 11:59 PM CDT Hospital Encounter [facility] [address] [place] [address] Bob Helton MD Arthritis of right shoulder (Primary Dx) Discharge Disposition: Discharge to home or self care from Last 3 Months Surgical History Surgery Date Site/Laterality Comments SHOULDER SURGERY 07/10/2016 - 07/09/2017 Left rotator CARPAL TUNNEL RELEASE 07/10/1983 - 07/09/1984 Bilateral FLUORO GUIDED ASPIRATION OR INJECTION LARGE JOINT LEFT 04/26/2023 Left HYSTERECTOMY 07/10/1996 - 07/09/1997 SECTION 1981 & 1978 CHOLECYSTECTOMY 07/10/1981 - 07/09/1982 GASTRIC BYPASS 40 yrs ago JOINT REPLACEMENT 07/10/2023 - 08/09/2023 Left shoulder SHOULDER OPEN ROTATOR CUFF REPAIR Right x2 unknown dates REVERSE TOTAL SHOULDER ARTHROPLASTY 07/10/2023 - 08/09/2023 FLUORO GUIDED INJECTION SHOULDER RIGHT 05/02/2025 Right Medical History Medical History Date Comments Anemia Arthritis Depression Headache Migraines Obesity Osteoarthritis Thyroid disease Family History Medical History Relation Name Comments Cancer Brother Diabetes Brother Heart disease Brother Heart disease Father Arthritis Mother Gout Mother Arthritis Sister Diabetes Sister Heart disease Sister Anesthesia problems Neg Hx Relation Name Status Comments Brother Father Mother Sister Social History Tobacco Use Types Packs/Day Years Used Date Smoking Tobacco: Never Smokeless Tobacco: Never Tobacco Cessation:Counseling Given: Not Answered Alcohol Use Standard Drinks/Week Comments No 0 [...] making you feel afraid or unsafe? Denies 05/02/2025 Comments No Sex and Gender Information Value Date Recorded Sex Assigned at Not on file Legal Sex Female 1:21 AM REACHER Gender Identity Not on file Sexual Orientation Not on file Last Filed Vital Signs Vital Sign Reading Time Taken Comments Blood Pressure 175/95 05/02/2025 11:02 AM CDT Pulse 71 05/02/2025 11:02 AM CDT Temperature 36.2 C (97.2 F) 05/24/2024 2:00 PM REACHER Respiratory Rate 18 05/02/2025 11:02 AM CDT Oxygen Saturation 98% 05/02/2025 11:02 AM CDT Inhaled Oxygen Concentration - - Weight 90.3 kg (199 lb) 02/19/2025 9:53 AM CDT Height 154.9 cm (5' 1) 02/19/2025 9:53 AM CDT Body Mass Index 37.6 02/19/2025 9:53 AM CDT Plan of Treatment Health Maintenance Due Date Last Done Comments Colon Cancer Screening-Colonoscopy 1955 Depression Screening 1955 Hepatitis C Screening 1955 DTaP/Tdap/Td Vaccine (1 - Tdap) 12/31/1966 Hepatitis B Screening 12/31/1973 Well Visit 65+ 12/31/2020 Breast Cancer Screening-Mammogram 11/21/2024 024, 11/22/2023 Covid-19 Vaccine ( season) 2025, 08/28/2020 Influenza Vaccine (#1) 2025 , 05/09/2022, 04/25/2020 Osteoporosis Screening-Bone Density Scan 01/09/2026 01/10/2024, 01/10/2024 Fall Risk Assessment 05/02/2026 05/02/2025 Zoster Vaccine Completed 07/13/2020, 04/25/2020 Pneumococcal vaccine 65+ Completed 05/09/2022 Medical Devices Implanted Type Area Automotive Machinist Apprentice Device Identifier Shelf Expiration Date Model / Serial / Lot Propanc Od25 Mm Full Wedge Augment Shoulder 15 D Baseplate Glenoid [id number] - [id number] - [id number] Implanted:Qty: 1 on 07/12/2023 by Heriberto Vega MD at [facility] Other - see comments Left: Shoulder [employer] [id number] 04/16/2028 [id number] / [id number] / Description:Implant pause pe rformed prior to opening to sterile field [employer] Tornier Aequalis Perform 15mm Press Fit Long Post Shoulder [id number] - [id number] - [id number] Implanted:Qty: 1 on 07/12/2023 by Heriberto Vega MD at [facility] Other - see comments Left: Shoulder [employer] [id number] 02/25/2028 [id number] / [id number] / Description:Implant pause pe rformed prior to opening to sterile [facility] [employer] Tornier Aequalis Perform 36mm Reverse Shoulder Standard Sphere [id number] - [id number] - [id number] Implanted:Qty: 1 on 07/12/2023 by Heriberto Vega MD at [facility] Other - see comments Left: Shoulder [employer] [id number] 02/23/2028 [id number] / [id number] / Description:Implant pause pe rformed prior to opening to sterile [facility] Propanc Insert Perform 10 Deg Ret [id number] - [id number] - [id number] Implanted:Qty: 1 on 07/12/2023 by Heriberto Vega MD at [facility] Other - see comments Left: Shoulder [employer] [id number] 07/13/2027 [id number] / [id number] / Description:Implant pause pe rformed prior to opening to sterile [facility] [employer] Stem Fracture Sz 9s L 130mm Humeral [id number] - [id number] - [id number] Implanted:Qty: 1 on 07/12/2023 by Heriberto Vega MD at [facility] Other - see comments Left: Shoulder [employer] [id number] 11/29/2027 [id number] / [id number] / Description:Implant pause pe rformed prior to opening to sterile [facility] [employer] Aequalis Perform Reversed 5mm 34mm Peripheral Glenoid Screw [id number] - [id number] Implanted:Qty: 2 on 07/12/2023 by Heriberto Vega MD at [facility] Screw Left: Shoulder [employer] [id number] / / Description:Implant pause pe rformed prior to opening to sterile [facility] [employer] Aequalis Perform Reversed 5mm 18mm Peripheral Glenoid Screw [id number] - [id number] Implanted:Qty: 2 on 07/12/2023 by Heriberto Vega MD at [facility] Screw Left: Shoulder [employer] [id number] / / Description:Implant pause pe rformed prior to opening to sterile field Explanted Type Area Automotive Machinist Apprentice Device Identifier Shelf Expiration Date Model / Serial / Lot Lateral Fin [id number] Explanted:Qty: 1 on 07/12/2023 by Heriberto Vega MD at [facility] Other - see comments Left: Shoulder Other / / Description:Explant informat ion available Lateral Fin [id number]; disposed of per protocol Stem Explanted:Qty: 1 on 07/12/2023 by Roberta Bo MD at [facility] Other - see comments Left: Shoulder Other UNKNOWN / / Description:Explant informat ion unknown; disposed of per protocol [employer] [id number] Explanted:Qty: 1 on 07/12/2023 by Heriberto Vega MD at [facility] Other - see comments Left: Shoulder Other UNKNOWN / / Description:Explant availabl e information [employer] [id number]; disposed of per protocol Humeral Cap Explanted:Qty: 1 on 07/12/2023 by Heriberto Vega MD at [facility] Other - see comments Left: Shoulder Other UNKNOWN / / Description:Explant informat ion unknown; disposed of per protocol Screw Explanted:Qty: 1 on 07/12/2023 by Heriberto Vega MD at [facility] Other - see comments Left: Shoulder Other UNKNOWN / / Description:Explant informat ion unknown; disposed of per protocol Screw 18 Explanted:Qty: 1 on 07/12/2023 by Heriberto Vega MD at [facility] Screw Left: Shoulder Other UNKNOWN / / Description:Screw stated 18 additional Explant information unknown; disposed of per protocol Screw 30 Explanted:Qty: 1 on 07/12/2023 by Heriberto Vega MD at [facility] Screw Left: Shoulder Other UNKNOWN / / Description:Screw stated 30 additional Explant information unknown; disposed of per protocol Screw 46 Explanted:Qty: 2 on 07/12/2023 by Heriberto Vega MD at [facility] Screw Left: Shoulder Other UNKNOWN / / Description:Screw stated 46 additional Explant information unknown; disposed of per protocol Screw 38 Explanted:Qty: 1 on 07/12/2023 by Heriberto Vega MD at [facility] Screw Left: Shoulder Other UNKNOWN / / Description:Screw stated 38 additional Explant information unknown; disposed of per protocol Procedures Procedure Name Priority Date/Time Associated Diagnosis Comments FLUORO GUIDED INJECTION SHOULDER RIGHT Schedule Routine, Read Routine (OP Routine) 05/02/2025 10:59 AM CDT Arthritis of right shoulder from Last 3 Months Results * FL Fluoro Guided Injection Shoulder Right (GLENOHUMERAL JOINT) (05/02/2025 10:59 AM CDT) Narrative [facility] - 05/02/2025 10:59 AM CDT The images from this study are not interpreted by Radiology. Please refer to the physician's procedure / OR operative note. us Heriberto Vega MD IMG FLUOROSCOPY MARY ANDERSEN Final Result Performing Organization Address City/State/[facility] Co de Phone Number [facility] from Last 3 Months Insurance [employer] [employer] [employer] Advance Directives For more information, please contact: [phone] * Full Code (Latest Code Status on File) Date Activated Date Inactivated Comments 07/12/2023 5:46 PM 07/13/2023 4:42 PM Care Teams Industrial Pipefitter Journeyman Relationship Specialty Start Date End Date Ernie Watkins MD [address] [place] [id number] PCP - General Internal Medicine 10/09/24
[2025-07-06] MEDS: MORPHINE SULFATE (*CRX) 4 MG/ML INJ IV PUSH (17:35)
[2025-07-06] MEDS: ONDANSETRON INJ 4 MG/2 ML VIAL IV PUSH (17:40)
[2025-07-06] MEDS: TETANUS,DIPHTHERIA,AC PERTUSSIS ADULT (0.5 ML) BOOSTRIX IM (18:20)
== END 2025-07-06 18:55 | disposition home or self-care (01) ==
PROVIDERS: Emergency Provider Emergency Medicine
DX: S01.112A Laceration without foreign body of left eyelid and periocular area, initial encounter (principal); S81.812A Laceration without foreign body, left lower leg, initial encounter; S61.012A Laceration without foreign body of left thumb without damage to nail, initial encounter; W10.9XXA Fall (on) (from) unspecified stairs and steps, initial encounter; Z23 Encounter for immunization
CPT/HCPCS: 12011; 70450; 70486; 72125; 73130; 90471; 90715; 96374; 96375; 99284; J2270; J2405